=== PATIENT | female | born 1955 | race Caucasian/White ===

== ENCOUNTER → 2020-10-09 11:17 | Outpatient (CLI) | payer MEDICARE, OTHER, SELFPAY ==
--- NOTE | 2020-10-09 11:19 | DI.MG.S_ITS ---
BILATERAL DIGITAL SCREENING MAMMOGRAM 3D/2D WITH CAD: 10/09/2020 CLINICAL: Routine screening. Comparison is made to exams dated: 11/21/2016 mammogram, 08/02/2019 mammogram, and 11/10/2017 mammogram - outside location. The tissue of both breasts is predominantly fatty. Current study was also evaluated with a Computer Aided Detection (CAD) system. No significant masses, calcifications, or other findings are seen in either breast. There has been no significant interval change. IMPRESSION: NEGATIVE There is no mammographic evidence of malignancy. A 1 year screening mammogram is recommended. This exam was interpreted at Station ID: [id number]. NOTE: For mammograms, a report in lay terms will be sent to the patient. Approximately 15% of breast malignancies will not be visualized mammographically. In the management of a palpable breast mass, a negative mammogram must not discourage biopsy of a clinically suspicious lesion. Electronically Signed By: Enrique Robbins M.D., jr/jazmin:10/09/2020 12:20:20 letter sent: Normal Exam ACR BI-RADS Category 1: Negative [id number]
== END ==
PROVIDERS: PCP Registered Nurse Diabetes Educator; Referring Provider Registered Nurse Diabetes Educator; Visit Provider Registered Nurse Diabetes Educator
DX: Z12.31 Encounter for screening mammogram for malignant neoplasm of breast (principal); Z00.00 Encounter for general adult medical examination without abnormal findings; R73.01 Impaired fasting glucose; E78.5 Hyperlipidemia, unspecified
CPT/HCPCS: 77063; 77067

== ENCOUNTER → 2020-10-16 09:14 | Outpatient (CLI) | payer MEDICARE, OTHER, SELFPAY ==
[2020-10-16 09:45] LABS: Add Manual Diff / Slide Review NO; Basophils Absolute Auto 100 /uL (0-100); Basophils Percent Auto 1.9 % (0-2); Eosinophils Absolute Auto 300 /uL (0-450); Eosinophils Percent Auto 5.8 % (2-4); Hematocrit 40.9 % (36-46); Hemoglobin 13.9 g/dL (12.0-16.0); Lymphocytes Absolute Auto 1800 /uL (1100-4500); Lymphocytes Percent Auto 36.1 % (25-40); Mean Corpuscular HGB Conc 33.9 % (30-36); Mean Corpuscular Hemoglobin 30.7 PG (26-34); Mean Corpuscular Volume 90.5 fL (80-100); Monocytes Absolute Auto 400 /uL (0-900); Monocytes Percent Auto 7.6 % (3-14); Neutrophils Absolute Auto 2500 /uL (1500-7000); Neutrophils Percent Auto 48.6 % (50-75); Platelet Count 209 X10^3/uL (150-400); Red Blood Cell Count 4.52 X10^6/uL (4.0-5.2); Red Cell Distribution Width 12.9 % (11.6-14.8); White Blood Cell Count 5.1 X10^3/uL (4.5-11.0)
[2020-10-16 09:57] LABS: Hemoglobin A1C% w Est Avg Glu 5.5 % (4.0-6.0)
[2020-10-16 10:07] LABS: Alanine Aminotransferase 20 IU/L (<35); Albumin 4.1 g/dL (3.5-5.0); Albumin Globulin Ratio 1.2 (1.0-2.8); Alkaline Phosphatase 65 U/L (38-126); Aspartate Aminotransferase 28 IU/L (14-36); BUN Creatinine Ratio 27.4 (6-22); Bilirubin Total 0.8 mg/dL (0.2-1.3); Blood Urea Nitrogen 20 mg/dL (7-17); Calcium 9.5 mg/dL (8.4-10.2); Carbon Dioxide 33 mmol/L (22-32); Chloride 103 mmol/L (98-107); Cholesterol 245 mg/dL (140-199); Estimated Glomerular Filt Rate > 60.0 mL/min (>60); Globulin 3.3 g/dL (1.7-4.1); Glucose 111 mg/dL (80-110); HDL Cholesterol 71 mg/dL (40-60); HEMOLYSIS < 15 (0-50); LDL Cholesterol Calculated 152 mg/dL (<100); Potassium 4.3 mmol/L (3.4-5.1); Sodium 137 mmol/L (137-145); Total Protein 7.4 g/dL (6.3-8.2); Triglycerides 109 mg/dL (35-150)
[2020-10-16 10:40] LABS: TSH w/ Reflex to FT4 2.41 uIU/mL (0.47-4.68)
== END ==
PROVIDERS: PCP Registered Nurse Diabetes Educator; Referring Provider Registered Nurse Diabetes Educator; Visit Provider Registered Nurse Diabetes Educator
DX: Z00.00 Encounter for general adult medical examination without abnormal findings (principal); E78.5 Hyperlipidemia, unspecified; R73.01 Impaired fasting glucose
CPT/HCPCS: 36415; 80053; 80061; 83036; 84443; 85025

== ENCOUNTER → 2020-12-04 14:01 | Outpatient (CLI) | payer MEDICARE, OTHER, SELFPAY ==
[2020-12-04 15:04] LABS: COVID19 -Nasal RAPID Negative (Negative)
== END ==
PROVIDERS: PCP Registered Nurse Diabetes Educator; Visit Provider Physician Assistant
DX: Z20.822 Contact with and (suspected) exposure to COVID-19 (principal)
CPT/HCPCS: 87635

== ENCOUNTER → 2021-05-12 08:15 | Outpatient (CLI) | payer MEDICARE, OTHER, SELFPAY ==
[2021-05-12 09:34] LABS: Add Manual Diff / Slide Review NO; Basophils Absolute Auto 100 /uL (0-100); Basophils Percent Auto 0.9 % (0-2); Eosinophils Absolute Auto 200 /uL (0-450); Eosinophils Percent Auto 3.7 % (2-4); Hematocrit 41.2 % (36-46); Hemoglobin 13.8 g/dL (12.0-16.0); Lymphocytes Absolute Auto 2600 /uL (1100-4500); Lymphocytes Percent Auto 41.7 % (25-40); Mean Corpuscular HGB Conc 33.5 % (30-36); Mean Corpuscular Hemoglobin 30.6 PG (26-34); Mean Corpuscular Volume 91.4 fL (80-100); Monocytes Absolute Auto 300 /uL (0-900); Monocytes Percent Auto 5.6 % (3-14); Neutrophils Absolute Auto 2900 /uL (1500-7000); Neutrophils Percent Auto 48.1 % (50-75); Platelet Count 242 X10^3/uL (150-400); Red Blood Cell Count 4.51 X10^6/uL (4.0-5.2); Red Cell Distribution Width 13.4 % (11.6-14.8); White Blood Cell Count 6.1 X10^3/uL (4.5-11.0)
[2021-05-12 10:24] LABS: Alanine Aminotransferase 20 IU/L (<35); Albumin 4.1 g/dL (3.5-5.0); Albumin Globulin Ratio 1.6 (1.0-2.8); Alkaline Phosphatase 61 U/L (38-126); Aspartate Aminotransferase 31 IU/L (14-36); BUN Creatinine Ratio 18.6 (6-22); Bilirubin Total 0.8 mg/dL (0.2-1.3); Blood Urea Nitrogen 11 mg/dL (7-17); Calcium 9.9 mg/dL (8.4-10.2); Carbon Dioxide 28 mmol/L (22-32); Chloride 104 mmol/L (98-107); Cholesterol 216 mg/dL (140-199); Estimated Glomerular Filt Rate > 60.0 mL/min (>60); Globulin 2.6 g/dL (1.7-4.1); Glucose 99 mg/dL (80-110); HDL Cholesterol 88 mg/dL (40-60); HEMOLYSIS < 15 (0-50); LDL Cholesterol Calculated 112 mg/dL (<100); Potassium 4.5 mmol/L (3.4-5.1); Sodium 138 mmol/L (137-145); Total Protein 6.7 g/dL (6.3-8.2); Triglycerides 81 mg/dL (35-150)
[2021-05-12 10:48] LABS: Thyroid Stimulating Hormone 3.09 uIU/mL (0.47-4.68)
== END ==
PROVIDERS: PCP Registered Nurse Diabetes Educator; Referring Provider Registered Nurse; Visit Provider Registered Nurse
DX: E03.9 Hypothyroidism, unspecified (principal); R53.83 Other fatigue; E78.5 Hyperlipidemia, unspecified
CPT/HCPCS: 36415; 80053; 80061; 84443; 85025

== ENCOUNTER 2021-05-12 14:55 | Inpatient (IN) | payer MEDICARE, OTHER, SELFPAY ==
[2021-05-12] VITALS (34 sets, daily range): BP systolic 83–154; BP diastolic 50–81; PULSE 41–82; RESP 11–37; TEMP 36.7–37.3; O2SAT 92–99; BMI 31.3; BMI 31.0
--- NOTE | 2021-05-12 14:57 | DI.RAD.S_ITS ---
PROCEDURE: XR CHEST 1V INDICATIONS: chest pain TECHNIQUE: One view of the chest was acquired. COMPARISON: None. FINDINGS: Surgical changes and devices: None. Lungs and pleura: Lungs are clear. No pleural effusions or pneumothorax. Mediastinum: Mediastinal contours appear normal. Heart size is normal. Bones and chest wall: No suspicious bony lesions. Overlying soft tissues appear unremarkable. IMPRESSION: No evidence acute pulmonary process. Dictated by: Donte Schmid M.D. on 05/12/2021 at 14:48 Approved by: Donte Schmid M.D. on 05/12/2021 at 14:48
[2021-05-12 15:07] LABS: Add Manual Diff / Slide Review NO; Basophils Absolute Auto 100 /uL (0-100); Basophils Percent Auto 1.2 % (0-2); Eosinophils Absolute Auto 200 /uL (0-450); Eosinophils Percent Auto 2.7 % (2-4); Hematocrit 44.9 % (36-46); Lymphocytes Absolute Auto 2800 /uL (1100-4500); Lymphocytes Percent Auto 37.7 % (25-40); Mean Corpuscular HGB Conc 33.4 % (30-36); Mean Corpuscular Hemoglobin 30.8 PG (26-34); Mean Corpuscular Volume 92.1 fL (80-100); Monocytes Absolute Auto 400 /uL (0-900); Monocytes Percent Auto 5.2 % (3-14); Neutrophils Absolute Auto 4000 /uL (1500-7000); Neutrophils Percent Auto 53.2 % (50-75); Platelet Count 272 X10^3/uL (150-400); Red Blood Cell Count 4.88 X10^6/uL (4.0-5.2); Red Cell Distribution Width 13.5 % (11.6-14.8); White Blood Cell Count 7.5 X10^3/uL (4.5-11.0)
[2021-05-12 15:16] LABS: Alanine Aminotransferase 25 IU/L (<35); Albumin Globulin Ratio 1.4 (1.0-2.8); Alkaline Phosphatase 76 U/L (38-126); Aspartate Aminotransferase 38 IU/L (14-36); BUN Creatinine Ratio 18.3 (6-22); Bilirubin Total 0.7 mg/dL (0.2-1.3); Blood Urea Nitrogen 13 mg/dL (7-17); Calcium 10.3 mg/dL (8.4-10.2); Carbon Dioxide 28 mmol/L (22-32); Chloride 101 mmol/L (98-107); Creatine Kinase 83 U/L (30-135); Estimated Glomerular Filt Rate > 60.0 mL/min (>60); Globulin 3.7 g/dL (1.7-4.1); Glucose 120 mg/dL (80-110); HEMOLYSIS < 15 (0-50); Lipase 153 U/L (23-300); Sodium 138 mmol/L (137-145); Total Protein 8.7 g/dL (6.3-8.2)
[2021-05-12] MEDS: NITROGLYCERIN OINT 1 INCH/GM OINT...G. TOP (15:22)
[2021-05-12] MEDS: HEPARIN 5,000 UNIT/ML VIAL 5000 UNIT IV (15:23)
[2021-05-12] MEDS: HEPARIN DRIP 25,000 UNIT/500 ML IV.SOLN 20 UNIT IV (15:23)
[2021-05-12 15:27] LABS: Troponin I < 0.012 ng/mL (0.01-0.034)
--- NOTE | 2021-05-12 15:44 | PC.NURSE ---
second IV placed due to heparin infusion.
--- NOTE | 2021-05-12 15:58 | ED_ITS ---
HPI - Chest Pain General Chief Complaint: Chest Pain Stated Complaint: Chest pain Time Seen by Provider: 05/12/21 15:07 Source: patient and EMS Mode of arrival: Family Vehicle Limitations: no limitations History of Present Illness HPI narrative: 65-year-old woman with intermittent episodes of chest pain shortness of breath nausea the chest pain she describes as a weight over her chest more on the left side and under her left shoulder brain this been increasing in intensity and frequency over the last number of months. Yesterday she was seen by her primary care physician and workup was initiated however today she noted that she had significant symptoms after simply walking her dog in her yd which is dramatically unusual for her. Her symptoms today consisted of a sense of being ?off? decreased dexterity feeling off balance mild bradycardia at a rate of 47 along with the weighted feeling over her chest ra diating up under the left shoulder blade. She notes that she does occasionally have stomach pain it has been worse over the last number of days with increasing bloating. She does have a history of a nxiety but has not felt particularly anxious when she has these episodes. She notes that she also has chronic neck pain after for cervical spine surgeries and had assumed that some of the chest pressure was related to that as well. She denies vomiting, abdominal pain, constipation, fevers, cough, chills. Related Data Home Medications Medication Instructions Recorded Confirmed cbd thc tincture PO 09/18/20 05/11/21 coQ10 (ubiquinol) 100 mg capsule 100 mg PO BID 05/11/21 05/11/21 Previous Rx's Medication Instructions Recorded celecoxib 100 mg capsule 100 mg PO BID #180 cap 10/25/20 escitalopram oxalate 10 mg tablet 10 mg PO DAILY #90 tab 10/25/20 levothyroxine 50 mcg capsule 50 mcg PO DAILY #90 cap 10/25/20 trazodone 50 mg tablet 50 mg PO BEDTIME PRN #90 tab 10/25/20 Allergies Allergy/AdvReac Type Severity Reaction Status Date / Time Penicillins AdvReac Intermediate vomiting Verified 04/26/21 16:42 Sulfa (Sulfonamide AdvReac Intermediate vomiting Verified 04/26/21 16:42 Antibiotics) Review of Systems Review of Systems Narrative: Remainder of complete review of systems is otherwise unremarkable except for that included in the HPI. Patient History Medical History Cataracts, bilateral (~2018) Cervical spine disease (~2006) Chest pain Chicken pox (~1959) Chronic back pain (~2006) Colon polyps (~2000) Diverticular disease (~1999) Dyslipidemia Fatigue Fibroids Fibromyalgia Hypothyroidism (~2014) Impaired fasting blood sugar Measles Migraines Mumps Peripheral neuropathy Pituitary adenoma (~2001) Psoriasis Rosacea Scoliosis Shoulder pain (~2008) Skin cancer (~1991) Viral syndrome Surgical History Anesthesia History of section History of hysterectomy (~1999) History of lumbar surgery (~2017) History of shoulder surgery (~2009) History of tonsillectomy Status post arthroscopic surgery of right knee Status post cervical spinal fusion Family History Father Cancer History of heart disease Mother COPD (chronic obstructive pulmonary disease) Brother Skin problem Grandfather History of heart disease Grandmother History of heart disease Social History Smoking Status: Never smoker Smoking Status: Never smoker alcohol intake frequency: 0-2 drinks per day Alcohol type: wine Substance Use Type: does not use Exam Narrative Exam Narrative: General: Healthy appearing, in no acute distress. Able to give a complete and coherent history. Well-nourished well-developed HEENT: Moist mucous membranes, normal sclera with reactive pupils, Neck: No JVD, supple Respiratory: Lungs are clear to auscultation, no wheezing no rales no rhonchi. Full and symmetrical air movement Cardiac: Regular rate and rhythm no murmurs no bruits Abdomen: Soft, nontender, good bowel tones, no flank pain Skin: Warm and dry, no rashes Neurologic: Grossly neurologically intact with no obvious asymmetries or abnormalities Extremities: No trauma, well perfused Psych: Cooperative, appropriate insight and affect Initial Vital Signs Initial Vital Signs: Vital Signs Temperature 99.1 F 05/12/21 15:03 Pulse Rate 82 05/12/21 15:03 Respiratory Rate 18 05/12/21 15:03 Blood Pressure 149/81 H 05/12/21 15:03 Pulse Oximetry 99 05/12/21 15:03 Course Orders Ordered: ED Orders 05/12/21 14:45 Complete Blood Count AUTO DIFF Stat Comprehensive Metabolic Panel Stat Lipase Stat Troponin & CK Cardiac Panel Stat 05/12/21 14:57 XR chest 1V Stat EKG-12 Lead Stat 05/12/21 16:25 COVID19 - ADMIT (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 MANAGER swab/PCR) Stat 05/12/21 16:50 Troponin I Stat Acetaminophen (Acetaminophen 325 Mg Tablet) 650 mg PO Q6HR PRN PRN Reason: Fever/Mild Pain (1-3) Al Hydrox/Mg Hydrox/Simethicone (Mag Hydrox/Alum/Simeth 30 Ml Udc) 30 ml PO Q6HR PRN PRN Reason: Dyspepsia Aspirin (Aspirin Ec 325 Mg Tablet) 325 mg PO DAILY SHAUN Heparin Sodium/Dextrose (Heparin Drip) 25,000 unit in 500 mls @ 20 mls/hr IV CONT SHAUN; Protocol Last Admin: 05/12/21 15:23 Dose: 1,000 units/hr, 20 mls/hr Documented by: EDWARD Sodium Chloride (Normal Saline 0.9%) 500 mls @ 1,000 mls/hr IV BOLUS ONE Stop: 05/12/21 20:20 Last Admin: 05/12/21 20:01 Dose: 1,000 mls/hr Documented by: Morphine Sulfate (Morphine 2 Mg/Ml Inj) 2 mg IV Q5MIN PRN PRN Reason: Chest Pain Naloxone HCl (Naloxone 0.4 Mg/Ml Vial) 0.2 mg IV Q2MIN PRN PRN Reason: Opiate Reversal Nitroglycerin (Nitroglycerin 0.4 Mg Sl Tab) 0.4 mg SL [id number] PRN PRN Reason: Chest Pain Discontinued Medications Acetaminophen (Acetaminophen 325 Mg Tablet) 975 mg PO NOW ONE Stop: 05/12/21 19:05 Last Admin: 05/12/21 19:44 Dose: 975 mg Documented by: Heparin Sodium (Porcine) (Heparin 5,000 Unit/Ml Vial) 5,000 unit IV NOW ONE Stop: 05/12/21 15:16 Last Admin: 05/12/21 15:23 Dose: 5,000 unit Documented by: EDWARD Nitroglycerin (Nitroglycerin Oint 1 Inch/Gm Oint...G.) 1 inch TOP NOW ONE Stop: 05/12/21 15:16 Last Admin: 05/12/21 15:22 Dose: 1 inch Documented by: EDWARD Nitroglycerin (Nitroglycerin Oint 1 Inch/Gm Oint...G.) 0.5 inch TOP NOW ONE Stop: 05/12/21 19:52 Last Admin: 05/12/21 20:02 Dose: 0.5 inch Documented by: Vital Signs Vital signs: Vital Signs - 8 hr 05/12/21 15:03 05/12/21 15:22 05/12/21 15:47 Temperature 99.1 F Pulse Rate 82 58 L 57 L Respiratory Rate 18 21 Blood Pressure 149/81 H 154/72 H Pulse Oximetry 99 97 05/12/21 15:50 05/12/21 16:00 05/12/21 16:10 Temperature Pulse Rate 59 L 60 56 L Respiratory Rate 23 31 H 20 Blood Pressure 108/60 120/66 102/55 L Pulse Oximetry 94 98 95 05/12/21 16:20 05/12/21 16:30 05/12/21 16:40 Temperature Pulse Rate 60 60 56 L Respiratory Rate 37 H Blood Pressure 102/58 L 105/60 100/61 Pulse Oximetry 96 97 95 05/12/21 16:50 05/12/21 17:00 05/12/21 17:10 Temperature Pulse Rate 56 L 56 L 52 L Respiratory Rate Blood Pressure 108/60 122/66 105/64 Pulse Oximetry 95 96 96 05/12/21 17:30 05/12/21 17:41 05/12/21 17:50 Temperature Pulse Rate 54 L 54 L 51 L Respiratory Rate 11 L 18 12 Blood Pressure 138/71 111/67 108/65 Pulse Oximetry 98 97 96 05/12/21 18:00 05/12/21 18:10 05/12/21 18:20 Temperature Pulse Rate 54 L 52 L 52 L Respiratory Rate 23 Blood Pressure 106/59 L 111/68 119/64 Pulse Oximetry 98 96 97 05/12/21 18:30 05/12/21 18:40 05/12/21 18:43 Temperature Pulse Rate 52 L 48 L 50 L Respiratory Rate Blood Pressure 100/51 L 96/62 Pulse Oximetry 96 95 97 05/12/21 18:50 05/12/21 19:00 Temperature Pulse Rate 47 L 46 L Respiratory Rate Blood Pressure 86/52 L 106/61 Pulse Oximetry 96 98 MDM - Chest Pain Medical Records Data Attestation: I reviewed the patient's medical records. Lab Data Attestation: I reviewed the patient's lab results. Result diagrams: 05/12/21 14:45 05/12/21 14:45 Labs: Lab Results 05/12/21 05/12/21 05/12/21 Range/Units 14:45 14:45 16:25 WBC 7.5 (4.5-11.0) X10^3/uL RBC 4.88 (4.0-5.2) X10^6/uL Hgb 15.0 (12.0-16.0) g/dL Hct 44.9 (36-46) % MCV 92.1 (80-100) fL MCH 30.8 (26-34) PG MCHC 33.4 (30-36) % RDW 13.5 (11.6-14.8) % Plt Count 272 (150-400) X10^3/uL Neut % (Auto) 53.2 (50-75) % Lymph % (Auto) 37.7 (25-40) % [place] % (Auto) 5.2 (3-14) % Eos % (Auto) 2.7 (2-4) % Baso % (Auto) 1.2 (0-2) % Neut # (Auto) 4000 (7886-3041) /uL Lymph # (Auto) 2800 (9478-8740) /uL [place] # (Auto) 400 (0-900) /uL Eos # (Auto) 200 (0-450) /uL Baso # (Auto) 100 (0-100) /uL Sodium 138 (137-145) mmol/L Potassium 4.0 (3.4-5.1) mmol/L Chloride 101 (98-107) mmol/L Carbon Dioxide 28 (22-32) mmol/L BUN 13 (7-17) mg/dL Creatinine 0.71 (0.52-1.04) mg/dL Estimated GFR > 60.0 (>60) mL/min BUN/Creatinine Ratio 18.3 (6-22) Glucose 120 H (80-110) mg/dL Calcium 10.3 H (8.4-10.2) mg/dL Total Bilirubin 0.7 (0.2-1.3) mg/dL AST 38 H (14-36) IU/L ALT 25 (<35) IU/L Alkaline Phosphatase 76 (38-126) U/L Total Creatine Kinase 83 (30-135) U/L CK-MB (CK-2) TNP CK-MB (CK-2) Rel Index TNP Troponin I < 0.012 (0.01-0.034) ng/mL Total Protein 8.7 H (6.3-8.2) g/dL Albumin 5.0 (3.5-5.0) g/dL Globulin 3.7 (1.7-4.1) g/dL Albumin/Globulin Ratio 1.4 (1.0-2.8) Lipase 153 (23-300) U/L SARS-CoV-2 (PCR) Negative (Negative) 05/12/21 Range/Units 16:50 WBC (4.5-11.0) X10^3/uL RBC (4.0-5.2) X10^6/uL Hgb (12.0-16.0) g/dL Hct (36-46) % MCV (80-100) fL MCH (26-34) PG MCHC (30-36) % RDW (11.6-14.8) % Plt Count (150-400) X10^3/uL Neut % (Auto) (50-75) % Lymph % (Auto) (25-40) % [place] % (Auto) (3-14) % Eos % (Auto) (2-4) % Baso % (Auto) (0-2) % Neut # (Auto) (3191-0551) /uL Lymph # (Auto) (8909-7504) /uL [place] # (Auto) (0-900) /uL Eos # (Auto) (0-450) /uL Baso # (Auto) (0-100) /uL Sodium (137-145) mmol/L Potassium (3.4-5.1) mmol/L Chloride (98-107) mmol/L Carbon Dioxide (22-32) mmol/L BUN (7-17) mg/dL Creatinine (0.52-1.04) mg/dL Estimated GFR (>60) mL/min BUN/Creatinine Ratio (6-22) Glucose (80-110) mg/dL Calcium (8.4-10.2) mg/dL Total Bilirubin (0.2-1.3) mg/dL AST (14-36) IU/L ALT (<35) IU/L Alkaline Phosphatase (38-126) U/L Total Creatine Kinase (30-135) U/L CK-MB (CK-2) CK-MB (CK-2) Rel Index Troponin I < 0.012 (0.01-0.034) ng/mL Total Protein (6.3-8.2) g/dL Albumin (3.5-5.0) g/dL Globulin (1.7-4.1) g/dL Albumin/Globulin Ratio (1.0-2.8) Lipase (23-300) U/L SARS-CoV-2 (PCR) (Negative) Imaging Data Chest x-ray: Radiologist's Impression: FINDINGS: Surgical changes and devices: None. Lungs and pleura: Lungs are clear. No pleural effusions or pneumothorax. Mediastinum: Mediastinal contours appear normal. Heart size is normal. Bones and chest wall: No suspicious bony lesions. Overlying soft tissues appear unremarkable. IMPRESSION: No evidence acute pulmonary process. Dictated by: Donte Schmid M.D. on 05/12/2021 at 14:48 ECG Data Interpretation: Sinus Alex at a rate of 54 Otherwise normal intervals and axis No acute ischemic changes MDM Narrative Medical decision making narrative: 65-year-old woman with a strong history for progressive angina manifested as exertional dyspnea and pain radiating to the left scapula. Dyspnea completely resolved with nitroglycerin. She has a mild nitroglycerin headache. Initial EKG and 1st and 2nd troponin are unremarkable. Based on her history alone she was started on heparin drip and nitro paste was placed. She has not had additional dyspnea or nausea. At this point she is safe for [facility] for cardiac rule out and further cardiac evaluation. Findings are reviewed with patient she is amenable to hospital admission. Patient is reviewed with the hospitalist service and she will be admitted observation status. At this point she is safe for transfer to the floor Discharge Plan Departure Patient Disposition: Admitted as Observation Clinical Impression: Exertional dyspnea Admit Date/Time: 05/12/21 19:06 Admit Provider: Montserrat Braxton
[2021-05-12 17:20] LABS: COVID19 - ADMIT (NP swab/PCR) Negative (Negative)
[2021-05-12 17:32] LABS: Troponin I < 0.012 ng/mL (0.01-0.034)
[2021-05-12] MEDS: ACETAMINOPHEN 325 MG TABLET 975 MG PO (19:44)
--- NOTE | 2021-05-12 19:52 | PC.NURSE ---
Pt noted with HR 45 and BP 80s/40's. Pt reports dizziness with movement and HOOPER /. Pt medicated with tylenol per order, BP improved to 106/59. Dr Tan notified, orders received for NS 500ml bolus, and remove 1 nitropaste and replace with 0.5 nitropaste.
[2021-05-12] MEDS: SODIUM CHLORIDE 0.9% 500 ML 1000 ML IV (20:01)
[2021-05-12] MEDS: NITROGLYCERIN OINT 1 INCH/GM OINT...G. 0.5 INCH TOP (20:02)
--- NOTE | 2021-05-12 20:03 | DI.ECHO.S_ITS ---
[facility]---------+ [facility] +---------+ : : [address] : : : : [id number] : : : : Phone: [phone] Echocardiogram Report + + :Name: PATRICIA MOODY Study Date: 05/13/2021 Height: 63 in : :[facility] ReadingLocation: Weight: 176 lb : : Gender: Female BSA: 1.8 m2 : :: 1955 Age: 65 yrs BP: 108/63 mmHg: :Reason For Study: CHEST PAIN : :Ordering Physician: LANIE, : :TOLU Performed By: Lisa Singh : :Referring: TOLU DELA CRUZ : + + Interpretation Summary 1) Normal left ventricular size, thickness, wall motion, and systolic function (EF 60-65%). 2) Normal right ventricular size and function. 3) There is moderate mitral regurgitation. 4) There is mild to moderate tricuspid regurgitation. 5) The right ventricular systolic pressure is estimated to be at least 31 mmHg based on an estimated right atrial pressure of 8 mm Hg. 6) No prior Echo available for comparison. Procedure: A two-dimensional transthoracic echocardiogram with color flow and Doppler was performed. The study quality was technically adequate. There is no prior echocardiogram noted for this patient. The patient was in sinus bradycardia with heart rates between 45-55 bpm during the exam. Left Ventricle: The left ventricle is normal in size and wall thickness. The ejection fraction is estimated to be 60-65%. Left ventricular systolic function appears normal without focal wall motion abnormalities. Right Ventricle: The right ventricle is normal in size and function. Atria: The left atrial size is normal. Right atrial size is normal. There is no Doppler evidence for an interatrial shunt. Mitral Valve: The mitral valve leaflets appear borderline thickened, but open well. There is no evidence of mitral valve prolapse. There is moderate mitral regurgitation. Aortic Valve: The aortic valve is trileaflet. The aortic valve opens well. There is no aortic valve stenosis. No aortic regurgitation is present. Tricuspid Valve: The tricuspid valve is normal in structure and function. The right ventricular systolic pressure is estimated to be at least 31 mmHg based on an estimated right atrial pressure of 8 mm Hg. There is mild to moderate tricuspid regurgitation. Pulmonic Valve: The pulmonic valve leaflets are thin and pliable; valve motion is normal. There is no pulmonic valvular regurgitation. Great Vessels: The aortic root is normal size. The dimensions of the ascending aorta are normal. The IVC is dilated (diameter is greater than 2.1 cm) yet it collapses greater than 50% with a sniff. This suggests a right atrial pressure of 8 mm Hg. Pericardium/ Pleura There is no pericardial effusion. There is no pleural effusion. MMode/2D Measurements & Calculations LVIDd: 4.6 cm LVOT diam: 2.0 cm LVIDs: 2.9 cm Ao root diam: 3.2 cm FS: 36.1 % asc Aorta Diam: 2.9 cm EPSS: 0.75 cm Ao Arch Diam (Prox Trans): 2.6 cm IVSd: 0.69 cm LVPWd: 0.87 cm LV parker. diameter/BSA (cm/m^2): 2.5 LV sys. diameter/BSA (cm/m^2): 1.6 LA A2 area: 17.0 cm2 RA long axis: 4.6 cm LA A4 area: 14.4 cm2 RA area: 15.7 cm2 LA length (vol): 4.2 cm RA vol: 45.7 ml LA vol: 49.3 ml RA : 25.0 ml/m2 LA vol index: 26.9 ml/m2 IVC diam: 2.2 cm RVD1 (basal): 3.8 cm TAPSE: 2.8 cm Doppler Measurements & Calculations Ao V2 max: 113.9 cm/sec LVOT Max Valeriy: 101.9 cm/sec Ao V2 mean: 79.0 cm/sec LV V1 max P.2 mmHg Ao max P.2 mmHg LV V1 VTI: 23.7 cm Ao mean P.8 mmHg BROOK(I,D): 2.8 cm2 Ao V2 VTI: 27.7 cm BROOK(V,D): 2.9 cm2 sev ratio: 0.86 BROOK indexed to BSA (cm^2/m^2): 1.5 MV E max valeriy: 87.5 cm/sec TR max valeriy: 240.6 cm/sec MV A max valeriy: 49.0 cm/sec TR max P.1 mmHg MV E/A: 1.8 PA V2 max: 74.2 cm/sec Med Peak E' Valeriy: 9.7 cm/sec PA V2 mean: 50.5 cm/sec E/E' med: 9.0 PA mean P.2 mmHg Lat Peak E' Valeriy: 9.7 cm/sec PA pr(Accel): 24.2 mmHg E/E' lat: 9.0 E/e' average: 9.0 MV dec time: 0.27 sec MR ERO: 0.19 cm2 MR PISA: 2.7 cm2 SV(LVOT): 76.2 ml MR flow rate: 99.1 cm3/sec MR PISA radius: 0.65 cm Reading Physician:01:22 PM
--- NOTE | 2021-05-12 20:31 | P.HP_ITS ---
History of Present Illness History of Present Illness Date Patient Seen: 05/12/21 Time Patient Seen: 20:00 Chief complaint: Chest pain Narrative: HPI narrative: 65-year-old woman with intermittent episodes of chest pain, shortness of breath, with diaphoresis, changes in vision, and nausea. The patient reports chest pain described as a weight over her mid upper chest area that radiates down into the left side and under her left shoulder blade, this been increasing in intensity and frequency over the last number of months, seems to be elicited with movement. She has felt a fluttering of her heart, and has experienced numbness and tingling to her fingers and toes during these episodes of chest pain. Yesterday she was seen by her primary care physician and workup was initiated however today she noted that she had significant symptoms after simply walking her dog today, which were dramatically worse for her. Her symptoms once in the ED were sense of being ?off? ,decreased dexterity, feeling off balance mild bradycardia at a rate of 47 along with CP the weighted feeling over her chest radiating down & to her left and then up under the left shoulder blade. Her symptoms were relieved nitro paste. Upon admit to the floor the patient reports 1 small episode of chest pressure again lasting only seconds, but had resolved by the time I had arrived to the bedside. She notes that she does occasionally have stomach pain it has been worse over the last number of days with increasing bloating and abdominal pain postprandially, a weight loss of 30 lb over the past year, patient drinks approximately 4-5, 16 oz glasses of water a day and has increased thirst, urinary frequency and urgency without dysuria. She eats a balanced diet, exercises regularly. Patient follows both [facility] and has a primary care Deny Villasenor. Patient has a history of chronic low back pain, chronic neck pain, fibromyalgia (hyper-sensitive nervous system), diverticular disease, migraines, history of pituitary adenoma, hypothyroidism, migraines and has had cervical fusion from C1-T3. 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 Patient denies any anxiety or depression with these episodes. She denies vomiting, abdominal pain, constipation, fevers, cough, chills. Patient's initial exam in ED was fairly unremarkable. Patient did have a mild temperature at 99.1?. 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 Patient had a mildly elevated glucose at 120., troponin and lipase were within normal limits. Chest x-ray was without any evidence of acute pulmonary process, EKG sinus delmar, rate of [address] or T-wave changes. Patient is resting in bed at this time completely asymptomatic and in no distress. Patient admitted for chest pain suspect possible ACS. Patient History Medical History Cataracts, bilateral (~2018) Cervical spine disease (~2006) Chest pain Chicken pox (~1959) Chronic back pain (~2006) Colon polyps (~2000) Diverticular disease (~1999) Dyslipidemia Fatigue Fibroids Fibromyalgia Hypothyroidism (~2014) Impaired fasting blood sugar Measles Migraines Mumps Peripheral neuropathy Pituitary adenoma (~2001) Psoriasis Rosacea Scoliosis Shoulder pain (~2008) Skin cancer (~1991) Viral syndrome Surgical History Anesthesia History of section History of hysterectomy (~1999) History of lumbar surgery (~2017) History of shoulder surgery (~2009) History of tonsillectomy Status post arthroscopic surgery of right knee Status post cervical spinal fusion Family & Social History Family History Father Cancer History of heart disease Mother COPD (chronic obstructive pulmonary disease) Brother Skin problem Grandfather History of heart disease Grandmother History of heart disease Safety & Behavioral: Feels Safe in Current Yes. 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 Environment Been Physically Hurt or No Threatened By a Person Tobacco & Substance use: Smoking Status Never smoker alcohol intake frequency 0-2 drinks per day Substance Use Type does not use Meds Home Medications and Allergies Home Medications Medication Instructions Recorded Confirmed Type cbd thc tincture PO 09/18/20 05/11/21 History celecoxib 100 mg capsule 100 mg PO BID #180 cap 10/25/20 05/11/21 Rx escitalopram oxalate 10 mg tablet 10 mg PO DAILY #90 tab 10/25/20 05/11/21 Rx levothyroxine 50 mcg capsule 50 mcg PO DAILY #90 cap 10/25/20 05/11/21 Rx trazodone 50 mg tablet 50 mg PO BEDTIME PRN #90 tab 10/25/20 05/11/21 Rx coQ10 (ubiquinol) 100 mg capsule 100 mg PO BID 05/11/21 05/11/21 History Allergies Allergy/AdvReac Type Severity Reaction Status Date / Time Penicillins AdvReac Intermediate vomiting Verified 04/26/21 16:42 Sulfa (Sulfonamide AdvReac Intermediate vomiting Verified 04/26/21 16:42 Antibiotics) Review of Systems Review of Systems ROS: Yes All systems reviewed with the patient and are negative except as otherwise documented Constitutional Constitutional: Reports fatigue, Reports headache(s) and Reports weight loss Eyes Eyes: Reports blurry vision and Reports change in vision ENT Ears, Nose, Mouth, and Throat: Yes dizziness, Yes headache(s) and Yes neck pain (Chronic) Cardiovascular Cardiovascular: Reports chest pain, Reports chest pain with activity, Reports pedal edema, Reports lightheadedness, Reports palpitations (She has felt fibrillation), Reports dyspnea on exertion and Reports slow heart rate Comments: swelling of her hands bilaterally Respiratory Respiratory: Reports dyspnea on exertion Gastrointestinal Gastrointestinal: Reports tenesmus and Reports nausea Genitourinary Genitourinary: Reports urinary urgency Musculoskeletal Musculoskeletal: Reports neck pain (Chronic) Neurologic Neurologic: Reports dizziness and Reports headache(s) Endocrine Endocrine: Reports cold intolerance, Reports fatigue, Reports polydipsia and Reports palpitations (She has felt fibrillation) Exam Vital Signs (past 8 hours): - 05/12/21 15:03 05/12/21 15:22 05/12/21 15:47 Temperature 99.1 F Pulse Rate 82 58 L 57 L Respiratory Rate 18 21 Blood Pressure 149/81 H 154/72 H Pulse Oximetry 99 97 05/12/21 15:50 05/12/21 16:00 05/12/21 16:10 Temperature Pulse Rate 59 L 60 56 L Respiratory Rate 23 31 H 20 Blood Pressure 108/60 120/66 102/55 L Pulse Oximetry 94 98 95 05/12/21 16:20 05/12/21 16:30 05/12/21 16:40 Temperature Pulse Rate 60 60 56 L Respiratory Rate 37 H Blood Pressure 102/58 L 105/60 100/61 Pulse Oximetry 96 97 95 05/12/21 16:50 05/12/21 17:00 05/12/21 17:10 Temperature Pulse Rate 56 L 56 L 52 L Respiratory Rate Blood Pressure 108/60 122/66 105/64 Pulse Oximetry 95 96 96 05/12/21 17:30 05/12/21 17:41 05/12/21 17:50 Temperature Pulse Rate 54 L 54 L 51 L Respiratory Rate 11 L 18 12 Blood Pressure 138/71 111/67 108/65 Pulse Oximetry 98 97 96 05/12/21 18:00 05/12/21 18:10 05/12/21 18:20 Temperature Pulse Rate 54 L 52 L 52 L Respiratory Rate 23 Blood Pressure 106/59 L 111/68 119/64 Pulse Oximetry 98 96 97 05/12/21 18:30 05/12/21 18:40 05/12/21 18:43 Temperature Pulse Rate 52 L 48 L 50 L Respiratory Rate Blood Pressure 100/51 L 96/62 Pulse Oximetry 96 95 97 05/12/21 18:50 05/12/21 19:00 05/12/21 19:10 Temperature Pulse Rate 47 L 46 L 48 L Respiratory Rate Blood Pressure 86/52 L 106/61 98/54 L Pulse Oximetry 96 98 92 05/12/21 19:20 05/12/21 19:30 05/12/21 19:37 Temperature Pulse Rate 48 L 47 L 47 L Respiratory Rate Blood Pressure 100/56 L 88/50 L 83/50 L Pulse Oximetry 95 95 98 05/12/21 19:41 05/12/21 19:50 Temperature Pulse Rate 48 L 47 L Respiratory Rate Blood Pressure 104/53 L 106/59 L Pulse Oximetry 97 95 Oxygen Delivery Method Room Air Narrative Exam Narrative: General: Patient is a delightful well-developed, well- nourished female in no distress at this time. HEENT: Normocephalic, atraumatic, extraocular muscles intact, oral pharynx is clear and mucous membranes are moist. Neck is supple and symmetric, trachea is midline, no adenopathy, no thyroid enlargement, nontender, no masses palpated. Negative for JVD Chest: Normal AP diameter and contour without kyphoscoliosis, no nasal flaring, retractions, or tachypneic labored Lungs: Auscultation of all lung alexander are clear without adventitious sounds, wheezes, rhonchi, or rales. Cardio: S1 & S2 with regular rate and rhythm without murmur, rubs, or gallops, no carotid bruit, no cardiac pulsations present. Abdomen: Soft nontender, negative for organomegaly, or masses. Bowel sounds are present in all 4 quadrants without guarding or rebound, no CVA tenderness. Musculoskeletal: Muscle strength and tone are equal within normal limits, no deformity, crepitus, effusions, cyanosis, clubbing or edema present. Full range of motion intact radial and pedal pulses are normal. Skin: Warm dry and intact without rashes, ulcerations or petechiae. Neuro: Alert and orientated x3, strength is +5/5 in all extremities, sensation to touch intact, no gross deficits noted of cranial nerves. Psych: Patient has a well-kept appearance, appropriate affect, mental status attitude thought context and judgment are appropriate for age. Objective Labs Result Diagrams: 05/12/21 14:45 05/12/21 14:45 Labs: Laboratory Results - last 24 hr 05/12/21 05/12/21 05/12/21 14:45 14:45 16:25 WBC 7.5 RBC 4.88 Hgb 15.0 Hct 44.9 MCV 92.1 MCH 30.8 MCHC 33.4 RDW 13.5 Plt Count 272 Neut % (Auto) 53.2 Lymph % (Auto) 37.7 [place] % (Auto) 5.2 Eos % (Auto) 2.7 Baso % (Auto) 1.2 Neut # (Auto) 4000 Lymph # (Auto) 2800 [place] # (Auto) 400 Eos # (Auto) 200 Baso # (Auto) 100 Sodium 138 Potassium 4.0 Chloride 101 Carbon Dioxide 28 BUN 13 Creatinine 0.71 Estimated GFR > 60.0 BUN/Creatinine Ratio 18.3 Glucose 120 H Calcium 10.3 H Total Bilirubin 0.7 AST 38 H ALT 25 Alkaline Phosphatase 76 Total Creatine Kinase 83 CK-MB (CK-2) TNP CK-MB (CK-2) Rel Index TNP Troponin I < 0.012 Total Protein 8.7 H Albumin 5.0 Globulin 3.7 Albumin/Globulin Ratio 1.4 Lipase 153 SARS-CoV-2 (PCR) Negative 05/12/21 16:50 WBC RBC Hgb Hct MCV MCH MCHC RDW Plt Count Neut % (Auto) Lymph % (Auto) [place] % (Auto) Eos % (Auto) Baso % (Auto) Neut # (Auto) Lymph # (Auto) [place] # (Auto) Eos # (Auto) Baso # (Auto) Sodium Potassium Chloride Carbon Dioxide BUN Creatinine Estimated GFR BUN/Creatinine Ratio Glucose Calcium Total Bilirubin AST ALT Alkaline Phosphatase Total Creatine Kinase CK-MB (CK-2) CK-MB (CK-2) Rel Index Troponin I < 0.012 Total Protein Albumin Globulin Albumin/Globulin Ratio Lipase SARS-CoV-2 (PCR) Assessment & Plan Assessment & Plan narrative: 1. Acute Chest pain possible ACS in the setting of hyperlipidemia, acute, present on admission -Rule out myocardial ischemia, ACS, CAD, aortic dissection -Monitor for hypertensive emergencies with acute end-organ damage, ventricular tachycardia, unstable SVT, hypertension, angina or AL, heart failure, renal function. Heart score:4, GCS score:15 -Continuous tele monitoring and ordered echo, and stress test for tomorrow -patient placed on heparin drip over night, with PTT monitoring Q6 -Serial troponins 1 Q 6 hours x3, proBNP, TSH, ABG, CBC, electrolytes, UA and chest x-ray, blood pressure in both arms: -sublingual nitro glycerin 0.4 mg, aspirin 325 mg - Goals: reducing blood pressure over 24-48 hours, not more than 25-30% in the 1st 24 hours. O2 to keep O2 sats greater than 92% potassium > 4 and Mag > 2 -lipids ordered 2. Hypothyroidism secondary to pituitary adenoma in place, acute on chronic, pr esent on admission -continue patient's levothyroxine, TSH ordered 3. Fibromyalgia, with contributing chronic low back pain/chronic neck pain due to spinal fusion C1-T1, resulting in peripheral neuropathy, acute on chronic, present on admission -continue patient's Lexapro and trazodone 4. Obesity as evidence by BMI of 31, acute on chronic, present on admission -consideration will be given to dietary counseling. -BS120, A1C ordered, considering DM diagnosis Code Status: DNR-per patient specific verbal instructions Surrogate decision maker: Son Gerardo Rico & daughter Sera CARRIZALES PCR: Negative DVT/VTE prophylaxis: Patient on heparin drip and SCDs applied Scores GCS [place] coma scale eye opening: Spontaneous Evie coma scale verbal response: Orientated [place] coma scale motor response: Obey commands [place] coma scale total score: 15 Wells' Criteria for PE Clinical signs and symptoms of DVT: No PE is #1 Dx or equally likely: No Heart rate > 100: No Immobilization at least 3 days or surg in previous 4 weeks: No History of PE or DVT: No Hemoptysis: No Malignancy w/Treatment within 6 months or palliative: No Wells' PE Score total: 0
[2021-05-12 21:32] LABS: Troponin I < 0.012 ng/mL (0.01-0.034)
[2021-05-12] MEDS: KETOROLAC 30 MG/ML VIAL IV (21:54)
--- NOTE | 2021-05-12 22:07 | PC.NURSE ---
Admit/Evening shift note- Patient arrived to room via stretcher from ER at 2019. Patient alert and oriented and able to make needs known to staff. Patient oriented to bed and bed controls, room, bathroom, lights, phone, menu, and call tilley/TV remote. tele monitor applied as ordered. Patint refused SCD's at this time. Safety measures in place. Patient agrees to call for assistance. Call tilley and phone within reach. will continue to monitor.
[2021-05-12 23:41] LABS: Prothrombin Time 11.3 SECONDS (10.1-12.7)
[2021-05-12] MEDS: TRAZODONE 50 MG TABLET PO (23:52)
[2021-05-13] VITALS (9 sets, daily range): BP systolic 92–122; BP diastolic 52–66; PULSE 44–61; RESP 16–22; TEMP 36.2–37.4; O2SAT 96–99
[2021-05-13 00:19] LABS: PTT Partial Thromboplastin Tim 182 SECONDS (26.4-36.2)
--- NOTE | 2021-05-13 00:26 | PC.NURSE ---
Patient on heparin drip. Scheduled lab draw resulted critical PTT of 182. Protocol stated to stop heparin for 60 minutes. This was done at 0025. Will adjust rate as ordered at 0125.
[2021-05-13 00:40] LABS: Hemoglobin A1C% w Est Avg Glu 5.4 % (4.0-6.0)
[2021-05-13 04:32] LABS: Cholesterol 167 mg/dL (140-199); HDL Cholesterol 63 mg/dL (40-60); LDL Cholesterol Calculated 88 mg/dL (<100); Triglycerides 79 mg/dL (35-150)
[2021-05-13 04:42] LABS: NT-proBNP (BNP-Adult 18+) 117 pg/mL (<125)
[2021-05-13 04:45] LABS: Troponin I < 0.012 ng/mL (0.01-0.034)
[2021-05-13] MEDS: KETOROLAC 30 MG/ML VIAL IV ×5 (05:15→23:18)
[2021-05-13] MEDS: SODIUM CHLORIDE 0.9% FLUSH 10 ML IV (05:16)
[2021-05-13 06:33] LABS: Bacteria Urine None Seen; RBC Urine None Seen (0-5/HPF); WBC Urine None Seen (0-5/HPF)
[2021-05-13 06:43] LABS: INR 1.1 (0.9-1.3); Prothrombin Time 12.6 SECONDS (10.1-12.7)
[2021-05-13 06:53] LABS: Culture Indicated Urine Cult Not Indicated
[2021-05-13 07:00] LABS: PTT Partial Thromboplastin Tim 97 SECONDS (26.4-36.2)
--- NOTE | 2021-05-13 07:25 | P.PN_ITS ---
Subjective Subjective Date Patient Seen: 05/13/21 Time Patient Seen: 10:27 Interval history: She is seen in her room here on 05/13/2021. She is experiencing occasional left-sided chest pain with the most recent event occurring while she was walking her dog yesterday. She denies any injury, lunging dog or pulling on her shoulder. When she rolls onto the left side for her echocardiogram today it exacerbates the pain quite a bit. Her troponin is less than 0.012. Her EKG is reviewed and is sinus bradycardia without abnormal ST or T-wave changes. The cholesterol is 167 with an LDL of 88. Her vitals are normal except for a listed respiratory rate of 44 which is not accurate. Her UA today was normal. She continues on a heparin drip. Exam Vital Signs (past 8 hours): - 05/12/21 23:57 05/13/21 03:00 05/13/21 04:14 Temperature 97.2 F L Pulse Rate 44 L Respiratory Rate 16 Blood Pressure 92/52 L Pulse Oximetry 97 97 97 Oxygen Delivery Method Room Air Oxygen Flow Rate 0 Narrative Exam Narrative: Alert and oriented. No apparent distress. Talkative and very social/engaging. Heart is regular rate and rhythm without murmur Lungs are clear to auscultation bilaterally Extremities have no ankle edema There is no chest wall tenderness. Objective Labs Result Diagrams: 05/12/21 14:45 05/12/21 14:45 Labs: Laboratory Results - last 24 hr 05/12/21 05/12/21 05/12/21 14:45 14:45 14:45 WBC 7.5 RBC 4.88 Hgb 15.0 Hct 44.9 MCV 92.1 MCH 30.8 MCHC 33.4 RDW 13.5 Plt Count 272 Neut % (Auto) 53.2 Lymph % (Auto) 37.7 [place] % (Auto) 5.2 Eos % (Auto) 2.7 Baso % (Auto) 1.2 Neut # (Auto) 4000 Lymph # (Auto) 2800 [place] # (Auto) 400 Eos # (Auto) 200 Baso # (Auto) 100 PT INR APTT Sodium 138 Potassium 4.0 Chloride 101 Carbon Dioxide 28 BUN 13 Creatinine 0.71 Estimated GFR > 60.0 BUN/Creatinine Ratio 18.3 Glucose 120 H Hemoglobin A1c Calcium 10.3 H Magnesium 2.0 Total Bilirubin 0.7 AST 38 H ALT 25 Alkaline Phosphatase 76 Total Creatine Kinase 83 CK-MB (CK-2) TNP CK-MB (CK-2) Rel Index TNP Troponin I < 0.012 NT-Pro-B Natriuret Pep Total Protein 8.7 H Albumin 5.0 Globulin 3.7 Albumin/Globulin Ratio 1.4 Triglycerides Cholesterol LDL Cholesterol, Calc HDL Cholesterol Lipase 153 Urine RBC Urine WBC Urine Bacteria Ur Culture Indicated? SARS-CoV-2 (PCR) 05/12/21 05/12/21 05/12/21 14:45 14:45 16:25 WBC RBC Hgb Hct MCV MCH MCHC RDW Plt Count Neut % (Auto) Lymph % (Auto) [place] % (Auto) Eos % (Auto) Baso % (Auto) Neut # (Auto) Lymph # (Auto) [place] # (Auto) Eos # (Auto) Baso # (Auto) PT 11.3 INR 1.0 APTT Sodium Potassium Chloride Carbon Dioxide BUN Creatinine Estimated GFR BUN/Creatinine Ratio Glucose Hemoglobin A1c 5.4 Calcium Magnesium Total Bilirubin AST ALT Alkaline Phosphatase Total Creatine Kinase CK-MB (CK-2) CK-MB (CK-2) Rel Index Troponin I NT-Pro-B Natriuret Pep Total Protein Albumin Globulin Albumin/Globulin Ratio Triglycerides Cholesterol LDL Cholesterol, Calc HDL Cholesterol Lipase Urine RBC Urine WBC Urine Bacteria Ur Culture Indicated? SARS-CoV-2 (PCR) Negative 05/12/21 05/12/21 05/12/21 16:50 20:50 23:45 WBC RBC Hgb Hct MCV MCH MCHC RDW Plt Count Neut % (Auto) Lymph % (Auto) [place] % (Auto) Eos % (Auto) Baso % (Auto) Neut # (Auto) Lymph # (Auto) [place] # (Auto) Eos # (Auto) Baso # (Auto) PT INR APTT 182 H* Sodium Potassium Chloride Carbon Dioxide BUN Creatinine Estimated GFR BUN/Creatinine Ratio Glucose Hemoglobin A1c Calcium Magnesium Total Bilirubin AST ALT Alkaline Phosphatase Total Creatine Kinase CK-MB (CK-2) CK-MB (CK-2) Rel Index Troponin I < 0.012 < 0.012 NT-Pro-B Natriuret Pep Total Protein Albumin Globulin Albumin/Globulin Ratio Triglycerides Cholesterol LDL Cholesterol, Calc HDL Cholesterol Lipase Urine RBC Urine WBC Urine Bacteria Ur Culture Indicated? SARS-CoV-2 (PCR) 05/13/21 05/13/21 05/13/21 04:15 04:15 06:00 WBC RBC Hgb Hct MCV MCH MCHC RDW Plt Count Neut % (Auto) Lymph % (Auto) [place] % (Auto) Eos % (Auto) Baso % (Auto) Neut # (Auto) Lymph # (Auto) [place] # (Auto) Eos # (Auto) Baso # (Auto) PT 12.6 INR 1.1 APTT Sodium Potassium Chloride Carbon Dioxide BUN Creatinine Estimated GFR BUN/Creatinine Ratio Glucose Hemoglobin A1c Calcium Magnesium Total Bilirubin AST ALT Alkaline Phosphatase Total Creatine Kinase CK-MB (CK-2) CK-MB (CK-2) Rel Index Troponin I < 0.012 NT-Pro-B Natriuret Pep 117 Total Protein Albumin Globulin Albumin/Globulin Ratio Triglycerides 79 Cholesterol 167 LDL Cholesterol, Calc 88 HDL Cholesterol 63 H Lipase Urine RBC Urine WBC Urine Bacteria Ur Culture Indicated? SARS-CoV-2 (PCR) 05/13/21 05/13/21 06:00 06:30 WBC RBC Hgb Hct MCV MCH MCHC RDW Plt Count Neut % (Auto) Lymph % (Auto) [place] % (Auto) Eos % (Auto) Baso % (Auto) Neut # (Auto) Lymph # (Auto) [place] # (Auto) Eos # (Auto) Baso # (Auto) PT INR APTT 97 H* D Sodium Potassium Chloride Carbon Dioxide BUN Creatinine Estimated GFR BUN/Creatinine Ratio Glucose Hemoglobin A1c Calcium Magnesium Total Bilirubin AST ALT Alkaline Phosphatase Total Creatine Kinase CK-MB (CK-2) CK-MB (CK-2) Rel Index Troponin I NT-Pro-B Natriuret Pep Total Protein Albumin Globulin Albumin/Globulin Ratio Triglycerides Cholesterol LDL Cholesterol, Calc HDL Cholesterol Lipase Urine RBC None seen Urine WBC None seen Urine Bacteria None seen Ur Culture Indicated? Cult not indicated SARS-CoV-2 (PCR) [facility] Medical History Cataracts, bilateral (~2018) Cervical spine disease (~2006) Chest pain Chicken pox (~1959) Chronic back pain (~2006) Colon polyps (~2000) Diverticular disease (~1999) Dyslipidemia Fatigue Fibroids Fibromyalgia Hypothyroidism (~2014) Impaired fasting blood sugar Measles Migraines Mumps Peripheral neuropathy Pituitary adenoma (~2001) Psoriasis Rosacea Scoliosis Shoulder pain (~2008) Skin cancer (~1991) Viral syndrome Surgical History Anesthesia History of section History of hysterectomy (~1999) History of lumbar surgery (~2017) History of shoulder surgery (~2009) History of tonsillectomy Status post arthroscopic surgery of right knee Status post cervical spinal fusion Family History Father Cancer History of heart disease Mother COPD (chronic obstructive pulmonary disease) Brother Skin problem Grandfather History of heart disease Grandmother History of heart disease Social History household members: family Smoking Status: Never smoker Assessment & Plan Assessment & Plan narrative: 1. Acute Chest pain possible ACS in the setting of hyperlipidemia, acute, present on admission -Rule out myocardial ischemia, ACS, CAD, aortic dissection -onset with positional change for echocardiogram suggests a musculoskeletal cause. -Continuous tele monitoring, review echo report when available, stress test tomorrow. -continue heparin drip -Serial troponins 1 Q 6 hours x3 -sublingual nitro glycerin 0.4 mg, aspirin 325 mg -total cholesterol 167 with LDL 88, A1c 5.4 2. Hypothyroidism secondary to pituitary adenoma, acute on chronic, present on admission -continue levothyroxine, TSH is still pending 3. Fibromyalgia, with contributing chronic low back pain/chronic neck pain due to spinal fusion C1-T1, resulting in peripheral neuropathy, acute on chronic, present on admission -continue Lexapro and trazodone 4. Obesity as evidence by BMI of 31, acute on chronic, present on admission -consider dietary counseling. -BS 120, A1C 5.4 Code Status: DNR-per patient specific verbal instructions Surrogate decision maker: Son Gerardo Rico & daughter Sera CARRIZALES PCR: Negative DVT/VTE prophylaxis: Patient on heparin drip and SCDs applied Quality VTE Deep Vein Thrombosis/Pulmonary Embolism Present on Admission: No
[2021-05-13] MEDS: ESCITALOPRAM 10 MG TABLET PO (09:32)
[2021-05-13] MEDS: ASPIRIN EC 325 MG TABLET PO (09:32)
--- NOTE | 2021-05-13 10:01 | CM.DANOTE ---
DCP: Case received, EMR reviewed and met with patient. Introduced self and role. Was able to obtain information regarding patient's baseline status prior to hospitalization, as well as her current living situation. DCP assessment completed with information currently available. Patient is a 65 year old female who admitted yesterday evening to the care of the hospitalist team. PCP: STERLING Banks. Payer: confirmed: Medicare/[facility]. Patient came to the hospital via ambulance secondary to having chest pain, as well as shortness of breath. She had recently been to her provider's office, she had seen Ernie Chavis on Friday, and was determined to have a low heart rate. She was at home, and on Friday, was developing some pressure on her chest. Patient is here for a cardiac work up. Met with patient in her room. She is pleasant, alert and oriented, was sitting up in bed. Confirmed with her that she resides here in [place] alone. Her approximately 8 years ago. She moved from [place] and bought a large home here in town. She lives alone upstairs, but son and live downstairs. 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 P: DCP to continue to follow. Patient should be able to go home when she is medically stable. Norah Allan RN/Hair Specialist
[2021-05-13 13:02] LABS: PTT Partial Thromboplastin Tim 55 SECONDS (26.4-36.2)
[2021-05-13 18:27] LABS: PTT Partial Thromboplastin Tim 49 SECONDS (26.4-36.2)
[2021-05-14] VITALS (10 sets, daily range): BP systolic 102–151; BP diastolic 60–82; PULSE 44–54; RESP 16–17; TEMP 36.4–36.9; O2SAT 94–99
[2021-05-14] MEDS: TRAZODONE 50 MG TABLET PO ×2 (00:29→21:49)
--- NOTE | 2021-05-14 02:49 | PC.NURSE ---
patient is alert and oriented. Breath sounds diminished but CTA with RA sat of 98%. HRR but bradycardic w/telemetry reading of SB and rate of 43. Does complain of feeling slightly nauseated and states she has heartburn whenever she eats; declined offer of antiemetic. Denied chest pain but did complain of 3/10 pain across lower ribs posteriorly and right flank pain; is receiving scheduled Toradol and declined any additional pain medication. BT present and abdomen is soft but does complain of bloating and feeling gas-y. Denied dysuria, frequency or urgency with urination. Independent with bed mobility and is getting up to bathroom independently; denied weakness or dizziness but agreed to call for assistance if experiences either when getting up. Refused SCD's so reminded to ankle wave. Fall risk score is low.
[2021-05-14] MEDS: SODIUM CHLORIDE 0.9% FLUSH 10 ML IV ×3 (05:43→20:58)
[2021-05-14] MEDS: KETOROLAC 30 MG/ML VIAL IV ×3 (05:43→18:25)
[2021-05-14] MEDS: LEVOTHYROXINE 50 MCG TABLET PO (05:43)
[2021-05-14 06:34] LABS: Hemoglobin 13.3 g/dL (12.0-16.0); Platelet Count 202 X10^3/uL (150-400)
[2021-05-14 06:46] LABS: INR 1.1 (0.9-1.3); Prothrombin Time 11.7 SECONDS (10.1-12.7)
[2021-05-14 06:54] LABS: PTT Partial Thromboplastin Tim 29 SECONDS (26.4-36.2)
[2021-05-14] MEDS: ENOXAPARIN 40 MG/0.4 ML SYRINGE SUBCUT (08:33)
[2021-05-14] MEDS: ESCITALOPRAM 10 MG TABLET PO (08:49)
[2021-05-14] MEDS: ASPIRIN EC 325 MG TABLET PO (08:49)
--- NOTE | 2021-05-14 09:29 | PC.NURSE ---
Day shift: Pt off AC unti for stress test at approx 0905.
--- NOTE | 2021-05-14 09:33 | PC.NURSE ---
Day shift: Pt back on unit at approx 0930 and back on tele.
--- NOTE | 2021-05-14 10:32 | PC.NURSE ---
Day shift: Pt sititng in chair in room facing window w/ feet up. Relaxed and comfortable. She does complain of mild dyspepsia. Ok to have water only at this time. 2nd part of stress test later today. VS WNL. Denies any chest pain. Independent in room. Steady on feet. Call light in reach. Makes needs known proper.
--- NOTE | 2021-05-14 12:33 | PC.NURSE ---
Day shift: Pt c/o LUQ pain at approx 1225. Dr Mason informed at approx 1236.
--- NOTE | 2021-05-14 12:40 | PC.NURSE ---
Addendum entered by Gino Price R.N. 05/14/21 12:45: Off tele and [employer] informed. Original Note: Day shift: Pt off unit for 2nd stress test at approx 1240.
--- NOTE | 2021-05-14 14:32 | PC.NURSE ---
Day shift: Pt back on AC unit at approx 1400. Still c/o epigastric pain. Gave Maloxx per JAN. Pt eating yogurt w/ peaches. Denies any nausea at tis time.
[2021-05-14] MEDS: MAG HYDROX/ALUM/SIMETH 30 ML UDC PO ×2 (14:41→18:31)
--- NOTE | 2021-05-14 15:49 | CM.DPC ---
DCP Cont: Per MD, pt to have a stress test today around 1230 with likely plan of d/c home pending results. No current identified barriers to discharge. Plan: SW to follow after stress test to confirm safe plan of d/c home when stable, potentially tonight. NIC Foster
[2021-05-14 18:45] LABS: Alanine Aminotransferase 33 IU/L (<35); Albumin 3.6 g/dL (3.5-5.0); Albumin Globulin Ratio 1.3 (1.0-2.8); Alkaline Phosphatase 60 U/L (38-126); Aspartate Aminotransferase 53 IU/L (14-36); BUN Creatinine Ratio 28.1 (6-22); Bilirubin Total 0.4 mg/dL (0.2-1.3); Blood Urea Nitrogen 18 mg/dL (7-17); Calcium 9.5 mg/dL (8.4-10.2); Carbon Dioxide 29 mmol/L (22-32); Chloride 104 mmol/L (98-107); Estimated Glomerular Filt Rate > 60.0 mL/min (>60); Globulin 2.8 g/dL (1.7-4.1); Glucose 111 mg/dL (80-110); HEMOLYSIS < 15 (0-50); Lipase 150 U/L (23-300); Potassium 4.3 mmol/L (3.4-5.1); Sodium 136 mmol/L (137-145); Total Protein 6.4 g/dL (6.3-8.2)
--- NOTE | 2021-05-14 20:56 | DI.NM.S_ITS ---
DATE OF SERVICE: 05/14/2021 PROCEDURE: Exercise perfusion study. INDICATIONS: Chest pain, shortness of breath. Underlying hypertension. RADIOPHARMACEUTICAL: 24.9 millicurie technetium-99m Myoview IV was injected at stress and 13.4 millicurie technetium-99m Myoview IV was injected at rest. CARDIAC STRESS: The patient underwent exercise perfusion study under the supervision of an attending staff. She walked on Lee protocol for 6 minutes and 30 seconds, achieved 88 percent of target heart rate. Baseline blood pressure 140/80. Peak blood pressure 174/80. The patient achieved ALISE -5 percent and 7 METs of workload. During exercise, the patient felt dyspnea and left-sided chest and left-sided upper quadrant heaviness, which on a scale of 1- 10, was 2 in intensity at peak exercise. Baseline EKG revealed sinus rhythm with sinus bradycardia with flattening of ST-segment in inferolateral leads. During stress, there was up to [address] depression in inferolateral leads. No significant convincing arrhythmias seen. RAW DATA: Breast shadow was seen. GATED STUDY: Stress LV ejection fraction 68 percent with a resting end- diastolic volume 93 mL without any obvious wall motion abnormalities. TID ratio 1.19, which is within normal limits. Lung/heart ratio 0.33, which is within normal limits. MYOCARDIAL PERFUSION: Stress supine, resting supine and stress prone images were compared to each other. Stress supine and resting supine images revealed small size, mildly decreased perfusion of anterior wall, anteroapex, which got significantly improved during prone images. No reversible ischemia seen. CONCLUSION: I will call this study likely a normal myocardial perfusion study with significant improvement of anterior wall and anteroapical defect during prone images from supine images. On raw data, breast shadow was seen. No reversible ischemia. Functional aerobic impairment -5 percent. Normal hemodynamic response. The patient felt shortness of breath and mild left-sided chest and left upper quadrant discomfort. As far as perfusion scan is concerned, this is a low-risk myocardial perfusion scan. Clinical correlation is recommended. Taylor Rico - MANDI/eve/jamee doc#: [id number]/job#: [id number] dd: 05/14/2021 17:40:00 dt: 05/14/2021 20:25:00 DICTATING MD/COPIES TO: Dave Steele MD COPIES MNE: AIMEE;
--- NOTE | 2021-05-14 22:25 | PC.NURSE ---
Patient has no complaints of chest pain/tightness/SOB/Dizziness/Headache, but does have some epigastric pain 9/10 at times which is well controlled with scheduled Toradol which brings pain level down to zero. Based on cardiac studies telemetry was dc'd per Ariadna KATZ verbal order. Patient is NPO at midnight and will have an US in the AM. Patient is independent in the room.
[2021-05-15] VITALS (7 sets, daily range): BP systolic 101–131; BP diastolic 56–74; PULSE 49–67; RESP 16–17; TEMP 36.4–37.2; O2SAT 96–98
[2021-05-15] MEDS: LEVOTHYROXINE 50 MCG TABLET PO (06:13)
[2021-05-15 06:30] LABS: INR 1.1 (0.9-1.3)
--- NOTE | 2021-05-15 08:07 | DI.US.S_ITS ---
PROCEDURE: US ABDOMEN COMPLETE INDICATIONS: ABDOMINAL PAIN TECHNIQUE: Real-time scanning was performed of the abdominal and retroperitoneal organs, with image documentation. COMPARISON: None. FINDINGS: Liver: Liver is normal in size and demonstrates mildly increased echotexture compatible with mild fatty infiltration. The portal vein is normal in caliber with hepatopetal flow. Gallbladder: No gallstones. No gallbladder wall thickening, pericholecystic fluid or sonographic Espino's sign. Biliary ducts: Intrahepatic bile ducts are non-dilated. Extrahepatic bile duct caliber measures 5.5 mm. Normal is 6-7 mm or less in diameter, or 10 mm or less post-cholecystectomy. Pancreas: There may be a 2.5 x 2.0 x 1.4 cm lobulated mass in the pancreatic head. Spleen: Spleen is normal in size and homogeneous in echotexture. Kidneys: Kidneys are normal in size and echotexture. Right kidney measures 10.5 cm long; left kidney measures 11.2 cm long. No hydronephrosis or nephrolithiasis. No solid masses. Aorta: Visualized aorta is normal in caliber at less than 3 cm. Iliacs: Proximal common iliac arteries are normal in caliber at less than 2.5 cm. IVC: Intrahepatic inferior vena cava is patent. Miscellaneous: No free abdominal fluid. IMPRESSION: 1. Question a 2.5 x 2.0 x 1.5 cm lobulated mass in the pancreatic head. Pancreatic protocol CT is recommended for follow-up evaluation. 2. Normal gallbladder. No gallstones. 3. Mild hepatic fatty infiltration. Dictated by: Denis Rowland M.D. on 05/15/2021 at 10:37 Approved by: Denis Rowland M.D. on 05/15/2021 at 10:41
[2021-05-15] MEDS: SODIUM CHLORIDE 0.9% FLUSH 10 ML IV (09:46)
[2021-05-15] MEDS: KETOROLAC 30 MG/ML VIAL IV (09:47)
[2021-05-15] MEDS: ESCITALOPRAM 10 MG TABLET PO (09:47)
[2021-05-15] MEDS: ASPIRIN EC 325 MG TABLET PO (09:47)
--- NOTE | 2021-05-15 11:00 | DI.CT.S_ITS ---
PROCEDURE: CT ABDOMEN PELVIS W CON INDICATIONS: evaluate pancreatic head mass r/o cancer TECHNIQUE: After the administration of oral and intravenous contrast, axial sections were acquired from the lung bases to the pubic symphysis. Coronal and sagittal reformats were performed. For radiation dose reduction, the following was used: automated exposure control, adjustment of mA and/or kV according to patient size. COMPARISON:[facility], , US ABDOMEN COMPLETE, 05/15/2021, 8:59. FINDINGS: Image quality: Excellent. Lung bases: Lingula and right middle lobe scars and atelectasis. Heart: No significant findings. ABDOMEN: Liver: Unremarkable. Gallbladder: Unremarkable. Biliary ducts: Unremarkable. Pancreas: Unremarkable. Spleen: Unremarkable. Adrenal Glands: Unremarkable. Kidneys and Ureters: Unremarkable. Stomach and Bowel: There is thickening of gastric antrum as well as jejunum. There are innumerable colonic diverticula involving sigmoid colon. There is thickening of sigmoid colon. Appendix is normal. Peritoneum: No abnormal intraperitoneal fluid. No free air. Ventral Wall: Small fat containing umbilical hernia. Abdominal Nodes: No retroperitoneal or mesenteric adenopathy by size criteria. Vessels: Aorta and inferior vena cava are normal in size. PELVIS: Pelvic Organs: Unremarkable. Bladder: Bladder is not fully distended. Mild bladder wall thickening and mild pericystic stranding. Pelvic Nodes: No enlarged lymph nodes. Miscellaneous: No inguinal hernias are seen. Bones: Unremarkable. IMPRESSION: 1. No pancreatic head mass. The masslike appearance seen on the comparison ultrasound may be caused by markedly thickened gastric antrum. 2. Gastric antral thickening which may be secondary to peptic ulcer disease, inflammatory bowel disease or infection. 3. Mild thickening of jejunal loops, which is nonspecific and may be secondary to inflammatory or infectious process. 4. The extensive colonic diverticulosis. There is sigmoid colon thickening. Mild diverticulosis versus mild segmental colitis. Consider colonoscopy after adequate treatment of acute disease process. 5. Urinary bladder appears mildly thickened with mild stranding. Recommend correlation with urinalysis for urinary tract infection. Dictated by: Denis Rowland M.D. on 05/15/2021 at 14:57 Approved by: Denis Rowland M.D. on 05/15/2021 at 15:05
--- NOTE | 2021-05-15 15:47 | PM.DS.1 ---
History of Present Illness History of Present Illness Date Patient Seen: 05/15/21 Chief complaint: Chest pain Narrative: HPI narrative: 65-year-old woman with intermittent episodes of chest pain, shortness of breath, with diaphoresis, changes in vision, and nausea. The patient reports chest pain described as a weight over her mid upper chest area that radiates down into the left side and under her left shoulder blade, this been increasing in intensity and frequency over the last number of months, seems to be elicited with movement. She has felt a fluttering of her heart, and has experienced numbness and tingling to her fingers and toes during these episodes of chest pain. Yesterday she was seen by her primary care physician and workup was initiated however today she noted that she had significant symptoms after simply walking her dog today, which were dramatically worse for her. Her symptoms once in the ED were sense of being ?off? ,decreased dexterity, feeling off balance mild bradycardia at a rate of 47 along with CP the weighted feeling over her chest radiating down & to her left and then up under the left shoulder blade. Her symptoms were relieved nitro paste. Upon admit to the floor the patient reports 1 small episode of chest pressure again lasting only seconds, but had resolved by the time I had arrived to the bedside. She notes that she does occasionally have stomach pain it has been worse over the last number of days with increasing bloating and abdominal pain postprandially, a weight loss of 30 lb over the past year, patient drinks approximately 4-5, 16 oz glasses of water a day and has increased thirst, urinary frequency and urgency without dysuria. She eats a balanced diet, exercises regularly. 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 Patient has a history of chronic low back pain, chronic neck pain, fibromyalgia (hyper-sensitive nervous system), diverticular disease, migraines, history of pituitary adenoma, hypothyroidism, migraines and has had cervical fusion from C1-T3. 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 Patient denies any anxiety or depression with these episodes. She denies vomiting, abdominal pain, constipation, fevers, cough, chills. Patient's initial exam in ED was fairly unremarkable. Patient did have a mild temperature at 99.1?. 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 Patient had a mildly elevated glucose at 120., troponin and lipase were within normal limits. Chest x-ray was without any evidence of acute pulmonary process, EKG sinus delmar, rate of [address] or T-wave changes. Patient is resting in bed at this time completely asymptomatic and in no distress. Patient admitted for chest pain suspect possible ACS. Discharge Providers Provider Date of admission: 05/13/21 12:19 Discharge Date: 05/15/21 Primary care physician: STERLING Banks Discharge provider: Jenifer Mason MD Summary Hospital Course Discharge Diagnosis: 1. Noncardiac chest pain, stress test revealed no significant ischemia 2. Abdominal discomfort, CT scan of the abdomen reveals no pancreatic head mass, there is marked thickening of the gastric antrum, mild thickening of jejunal loops and extensive colonic diverticulosis 3. Dyslipidemia 4. hypothyroidsim 5. Fibromyalgia Hospital Course: The patient was admitted to the hospital for evaluation of chest pain. She undewent stress testing which was negative for reversible ischemia. The patient developed significant right upper quadrant pain radiating to her back. She underwent abdominal ultrasound which suggested cystic masses at the head of the pancreas. This was followed up with a CT of abdomen/pelvis that revealed no pancreatic head mass, but marked thickening of the gastric antrum with mild thickening of the jejunal loops and extensive diverticulosis. She does report abdominal discomfort and bloating following eating. Her upper abdominal/back pain appears worse with eating as well. 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 The findings of the Abdominal CT were reviewed with her. She had her diet advanced and was deemed approriate for discharge home. Status at Discharge Cognitive/behavioral status at discharge: oriented Functional status at discharge: independent ambulation Overall status at discharge: patient is back to baseline Time Spent with Patient Time spent: Less than 30 minutes Exam Vital Signs (past 8 hours): - 05/15/21 07:54 05/15/21 14:10 Temperature 98.9 F Pulse Rate 55 L 56 L Respiratory Rate 16 16 Blood Pressure 131/74 Pulse Oximetry 97 98 Oxygen Delivery Method Room Air Oxygen Flow Rate 0 Narrative Exam Narrative: pleasant female Lungs: Clear to ausculatation CV: RRR nl Sl S2 Abd: soft/ mildly tender over the midepigastric area Ext: no edema Objective Labs Result Diagrams: 05/14/21 06:20 05/14/21 06:20 Labs: Laboratory Results - last 24 hr 05/14/21 05/15/21 06:20 06:05 PT 12.0 INR 1.1 Sodium 136 L Potassium 4.3 Chloride 104 Carbon Dioxide 29 BUN 18 H Creatinine 0.64 Estimated GFR > 60.0 BUN/Creatinine Ratio 28.1 H Glucose 111 H Calcium 9.5 Total Bilirubin 0.4 AST 53 H ALT 33 Alkaline Phosphatase 60 Total Protein 6.4 Albumin 3.6 Globulin 2.8 Albumin/Globulin Ratio 1.3 Lipase 150 PFSH Medical History Cataracts, bilateral (~2018) Cervical spine disease (~2006) Chest pain Chicken pox (~1959) Chronic back pain (~2006) Colon polyps (~2000) Diverticular disease (~1999) Dyslipidemia Fatigue Fibroids Fibromyalgia Hypothyroidism (~2014) Impaired fasting blood sugar Measles Migraines Mumps Peripheral neuropathy Pituitary adenoma (~2001) Psoriasis Rosacea Scoliosis Shoulder pain (~2008) Skin cancer (~1991) Viral syndrome Surgical History Anesthesia History of section History of hysterectomy (~1999) History of lumbar surgery (~2017) History of shoulder surgery (~2009) History of tonsillectomy Status post arthroscopic surgery of right knee Status post cervical spinal fusion Family History Father Cancer History of heart disease Mother COPD (chronic obstructive pulmonary disease) Brother Skin problem Grandfather History of heart disease Grandmother History of heart disease Social History household members: family Smoking Status: Never smoker Discharge Assessment & Plan Assessment and Plan Assessment: Chest pain-atypical Stress test Negative Abdominal Discomfort, etiology not clear-Abdominal CT findings reveal thickened gastric folds Plan of Treatment: discharge home F/U with Gastroenterology for outpatient EGD Discharge Plan Discharge Plan Patient Disposition: Home Discharge orders & Medications Prescriptions: Continued celecoxib 100 mg capsule 100 mg PO BID Qty: 180 RF: 3 escitalopram oxalate 10 mg tablet 10 mg PO DAILY Qty: 90 RF: 3 levothyroxine 50 mcg capsule 50 mcg PO DAILY Qty: 90 RF: 3 trazodone 50 mg tablet 50 mg PO BEDTIME PRN (Reason: insomnia) Qty: 90 RF: 3 coQ10 (ubiquinol) 100 mg capsule 100 mg PO BID RF: 0 Follow up/Referrals: Deny Montana ARNP [Primary Care Provider] - Diet/Activity/Treatments Diet: Diet as Tolerated Visit Report/Discharge Packet Instructions: Cardiac Stress Test, Myocardial Perfusion Imaging, DI for Cardiac Stress Test Discharge Data Primary Care Provider: Deny Montana Quality VTE Deep Vein Thrombosis/Pulmonary Embolism Present on Admission: No
--- NOTE | 2021-05-16 18:32 | P.PN_ITS ---
Subjective Subjective Date Patient Seen: 05/14/21 Interval history: Patient reports no significant chest pain. However she does describe some right upper quadrant pain that radiates to her back. She complains of nausea with eating. She complains of worsening pain when eating. Exam Vital Signs (past 8 hours): Oxygen Delivery Method Room Air Oxygen Flow Rate 0 Narrative Exam Narrative: Pleasant female in no acute distress Lungs: Clear to auscultation Cardiac exam: Regular rate and rhythm normal S1-S2 Abdomen: Mild tenderness in the right upper quadrant, palpable masses, no rebound tenderness Extremities: No edema Objective Labs Result Diagrams: 05/14/21 06:20 05/14/21 06:20 [facility] Medical History Cataracts, bilateral (~2018) Cervical spine disease (~2006) Chest pain Chicken pox (~1959) Chronic back pain (~2006) Colon polyps (~2000) Diverticular disease (~1999) Dyslipidemia Fatigue Fibroids Fibromyalgia Hypothyroidism (~2014) Impaired fasting blood sugar Measles Migraines Mumps Peripheral neuropathy Pituitary adenoma (~2001) Psoriasis Rosacea Scoliosis Shoulder pain (~2008) Skin cancer (~1991) Viral syndrome Surgical History Anesthesia History of section History of hysterectomy (~1999) History of lumbar surgery (~2017) History of shoulder surgery (~2009) History of tonsillectomy Status post arthroscopic surgery of right knee Status post cervical spinal fusion Family History Father Cancer History of heart disease Mother COPD (chronic obstructive pulmonary disease) Brother Skin problem Grandfather History of heart disease Grandmother History of heart disease Social History household members: family Smoking Status: Never smoker Assessment & Plan Assessment & Plan narrative: Acute Chest pain possible ACS in the setting of hyperlipidemia, acute, present on admission -Rule out myocardial ischemia, ACS, CAD, aortic dissection -Monitor for hypertensive emergencies with acute end-organ damage, ventricular tachycardia, unstable SVT, hypertension, angina or PA, heart failure, renal function. Heart score:4, GCS score:15 -Continuous tele monitoring and ordered echo, and stress test for tomorrow -patient placed on heparin drip over night, with PTT monitoring Q6 -Serial troponins 1 Q 6 hours x3, proBNP, TSH, ABG, CBC, electrolytes, UA and chest x-ray, blood pressure in both arms: -sublingual nitro glycerin 0.4 mg, aspirin 325 mg - Goals: reducing blood pressure over 24-48 hours, not more than 25-30% in the 1st 24 hours. O2 to keep O2 sats greater than 92% potassium > 4 and Mag > 2 -lipids ordered -await stress test, the results pending the results of the stress test 2. Hypothyroidism secondary to pituitary adenoma in place, acute on chronic, present on admission -continue patient's levothyroxine, TSH ordered 3. Fibromyalgia, with contributing chronic low back pain/chronic neck pain due to spinal fusion C1-T1, resulting in peripheral neuropathy, acute on chronic, present on admission -continue patient's Lexapro and trazodone 4. Obesity as evidence by BMI of 31, acute on chronic, present on admission -consideration will be given to dietary counseling. -BS120, A1C ordered, considering DM diagnosis Quality VTE Deep Vein Thrombosis/Pulmonary Embolism Present on Admission: No
== END 2021-05-15 17:17 | disposition home or self-care (01) | DRG 313 ==
LOC: ED 15:56 → AC 19:06
PROVIDERS: Internal Medicine; Nurse Practitioner Family; Admitting Provider Family Medicine; Emergency Provider Emergency Medicine; PCP Registered Nurse Diabetes Educator; Referring Provider Emergency Medicine; Visit Provider Family Medicine
DX: R07.89 Other chest pain (principal); E78.5 Hyperlipidemia, unspecified; K57.30 Diverticulosis of large intestine without perforation or abscess without bleeding; E03.9 Hypothyroidism, unspecified; R10.11 Right upper quadrant pain; M79.7 Fibromyalgia; E66.9 Obesity, unspecified; Z68.31 Body mass index [BMI] 31.0-31.9, adult; Z66 Do not resuscitate; Z20.822 Contact with and (suspected) exposure to COVID-19; R53.83 Other fatigue
CPT/HCPCS: 36415; 71045; 74177; 76700; 78452; 80053; 80061; 81015; 82550; 83036; 83690; 83735; 83880; 84443; 84484; 85014; 85018; 85025; 85049; 85610; 85730; 87635; 93005; 93017; 93306; 94760; 96365; 96366; 96375; 99284; C9803; G0378; A9502; J1644; J1650; J1885; Q9967

== ENCOUNTER → 2021-05-26 10:37 | Outpatient (CLI) | payer MEDICARE, OTHER, SELFPAY ==
[2021-05-12 19:17] VITALS: BMI 31.0
--- NOTE | 2021-05-26 10:39 | DI.RAD.S_ITS ---
PROCEDURE: XR THORACIC SPINE 3V INDICATIONS: neck pain TECHNIQUE: 2 views of the thoracic spine were acquired. COMPARISON: None. FINDINGS: Bones: Mild S-shaped thoracolumbar scoliosis. No fractures or dislocations. No suspicious bony lesions. 12 pairs of ribs are noted, and appear intact where visualized. Soft tissues: No paravertebral stripe thickening. IMPRESSION: Mild S-shaped thoracolumbar scoliosis. No evidence acute bony abnormality of the thoracic spine. If clinical suspicion and/or symptoms persist, further assessment with repeat plain films, or advanced imaging (e.g., CT, MRI, or bone scan) may be helpful for further assessment. Dictated by: Donte Schmid M.D. on 05/26/2021 at 11:02 Approved by: Donte Schmid M.D. on 05/26/2021 at 11:03
--- NOTE | 2021-05-26 10:39 | DI.RAD.S_ITS ---
PROCEDURE: XR CERVICAL SPINE 2V OR 3V INDICATIONS: neck pain TECHNIQUE: 3 view(s) of the cervical spine were acquired. COMPARISON: None. FINDINGS: Bones: No fractures or dislocations to the T1 level. The lateral masses of C1 appear intact on the odontoid view. No suspicious bony lesions. Expected appearance of ACDF spanning C5 through C7 and C7-T1. No evidence of hardware failure or loosening. Interbody fusion material also present. Soft tissues: No prevertebral soft tissue swelling. IMPRESSION: Expected appearance of cervical ACDF. Dictated by: Donte Schmid M.D. on 05/26/2021 at 11:00 Approved by: Donte Schmid M.D. on 05/26/2021 at 11:02
== END ==
PROVIDERS: PCP Registered Nurse Diabetes Educator; Referring Provider Registered Nurse Diabetes Educator; Visit Provider Registered Nurse Diabetes Educator
DX: M54.2 Cervicalgia (principal); G89.29 Other chronic pain; Z98.1 Arthrodesis status
CPT/HCPCS: 72040; 72070

== ENCOUNTER → 2021-06-04 10:49 | Outpatient (CLI) | payer MEDICARE, OTHER, SELFPAY ==
[2021-05-12 19:17] VITALS: BMI 31.0
[2021-06-04 12:29] LABS: Add Manual Diff / Slide Review NO; Basophils Absolute Auto 100 /uL (0-100); Basophils Percent Auto 1.2 % (0-2); Eosinophils Absolute Auto 200 /uL (0-450); Eosinophils Percent Auto 3.2 % (2-4); Hematocrit 39.6 % (36-46); Hemoglobin 13.3 g/dL (12.0-16.0); Lymphocytes Absolute Auto 1800 /uL (1100-4500); Lymphocytes Percent Auto 33.1 % (25-40); Mean Corpuscular HGB Conc 33.7 % (30-36); Mean Corpuscular Hemoglobin 30.5 PG (26-34); Mean Corpuscular Volume 90.8 fL (80-100); Monocytes Absolute Auto 400 /uL (0-900); Monocytes Percent Auto 7.4 % (3-14); Neutrophils Absolute Auto 3100 /uL (1500-7000); Neutrophils Percent Auto 55.1 % (50-75); Platelet Count 260 X10^3/uL (150-400); Red Blood Cell Count 4.36 X10^6/uL (4.0-5.2); Red Cell Distribution Width 12.9 % (11.6-14.8); White Blood Cell Count 5.6 X10^3/uL (4.5-11.0)
[2021-06-04 12:43] LABS: Alanine Aminotransferase 31 IU/L (<35); Albumin 4.3 g/dL (3.5-5.0); Albumin Globulin Ratio 1.5 (1.0-2.8); Alkaline Phosphatase 65 U/L (38-126); Aspartate Aminotransferase 46 IU/L (14-36); BUN Creatinine Ratio 24.5 (6-22); Bilirubin Total 0.5 mg/dL (0.2-1.3); Blood Urea Nitrogen 13 mg/dL (7-17); Calcium 9.8 mg/dL (8.4-10.2); Carbon Dioxide 30 mmol/L (22-32); Chloride 104 mmol/L (98-107); Estimated Glomerular Filt Rate > 60.0 mL/min (>60); Globulin 2.9 g/dL (1.7-4.1); Glucose 102 mg/dL (80-110); HEMOLYSIS < 15 (0-50); Potassium 4.2 mmol/L (3.4-5.1); Sodium 139 mmol/L (137-145); Total Protein 7.2 g/dL (6.3-8.2)
[2021-06-05 07:21] LABS: Interpretation Negative (Negative)
== END ==
PROVIDERS: PCP Registered Nurse Diabetes Educator; Referring Provider Physician Assistant; Visit Provider Physician Assistant
DX: R19.7 Diarrhea, unspecified (principal); I10 Essential (primary) hypertension
CPT/HCPCS: 36415; 80053; 83013; 85025

== ENCOUNTER → 2021-06-05 09:34 | Outpatient (CLI) | payer MEDICARE, OTHER, SELFPAY ==
[2021-05-12 19:17] VITALS: BMI 31.0
[2021-06-05 10:40] LABS: Occult Blood 1 Negative (Negative)
[2021-06-05 11:56] LABS: Clostridium Difficile Tox PCR Negative for C. diff (Negative)
[2021-06-08 15:58] LABS: Calprotectin, Stool 281 ug/g (0-120)
== END ==
PROVIDERS: PCP Registered Nurse Diabetes Educator; Referring Provider Physician Assistant; Visit Provider Physician Assistant
DX: R19.7 Diarrhea, unspecified (principal)
CPT/HCPCS: 82270; 83993; 87045; 87177; 87493; 87899

== ENCOUNTER → 2021-08-27 09:06 | Outpatient (CLI) | payer MEDICARE, OTHER, SELFPAY ==
[2021-05-12 19:17] VITALS: BMI 31.0
--- NOTE | 2021-08-27 | DI.MRI.S_ITS ---
PROCEDURE: MR LUMBAR SPINE WO CON INDICATIONS: Low back pain TECHNIQUE: Noncontrast sagittal T1 spin echo and T2 fast echo, sagittal STIR, axial T1 and T2 fast spin echo through the lumbar spine. In cases with scoliosis, additional coronal T2 fast spin echo may be performed. COMPARISON: None. FINDINGS: Image quality: Excellent. Alignment and Curvature: There is normal bony alignment. Bone Marrow: Marrow is of normal overall signal. No acute vertebral body compression fractures. Spinal Cord: Conus medullaris terminates at the L1 level. Visualized cord demonstrates normal signal and size. Paraspinous Soft Tissues: No paravertebral masses. T12-L1: Normal appearance. L1-L2: Normal appearance. L2-L3: Mild disc space narrowing and circumferential disc bulge combined with hypertrophic facet joints results in mild central and mild bilateral foraminal stenosis. L3-L4: Disc height is maintained. Mild circumferential disc bulge and moderate hypertrophic facet joints combined result in moderate central stenosis with moderate right and moderate left foraminal stenosis. L4-L5: Disc height is maintained. Circumferential disc bulge and hypertrophic facet joints result in mild central stenosis. There is moderate right and mild left foraminal stenosis. L5-S1: Disc height is maintained. Circumferential disc bulge and hypertrophic facet joints present without central or foraminal stenosis. IMPRESSION: 1. Multilevel degenerative disc disease and arthropathy results in varying degrees of central and foraminal stenosis including moderate central and bilateral foraminal stenosis at L3-4 Approved by: Clayton Guan M.D. on 08/27/2021 at 10:08
== END ==
PROVIDERS: PCP Physician Assistant; Referring Provider Physician Assistant; Visit Provider Physician Assistant
DX: M54.50 Low back pain, unspecified; M51.36 Other intervertebral disc degeneration, lumbar region; M51.37 Other intervertebral disc degeneration, lumbosacral region; M47.816 Spondylosis without myelopathy or radiculopathy, lumbar region; M47.817 Spondylosis without myelopathy or radiculopathy, lumbosacral region
CPT/HCPCS: 72148

== ENCOUNTER → 2021-10-15 13:31 | Outpatient (CLI) | payer MEDICARE, OTHER, SELFPAY ==
[2021-05-12 19:17] VITALS: BMI 31.0
--- NOTE | 2021-10-15 13:34 | DI.RAD.S_ITS ---
PROCEDURE: XR HIP W PEL IF DONE SHAHANA MIN 4V INDICATIONS: PAIN TECHNIQUE: AP pelvis with lateral view(s) of the bilateral hip(s). COMPARISON: None. FINDINGS: Bones: No fractures or dislocations. Pelvic ring appears intact. No suspicious bony lesions. Mild joint space narrowing and periarticular osteophyte formation at the bilateral hip joints. Soft tissues: The visualized bowel gas pattern is normal. No suspicious soft tissue calcifications. IMPRESSION: Bilateral hip osteoarthritis. No acute fracture. No osseous lesion. If symptoms and/or clinical suspicion for pathology persist, further assessment with repeat, or advanced imaging (e.g., CT, MRI, or bone scan) may be helpful for further assessment. Dictated by: Franck Mello M.D. on 10/15/2021 at 14:33 Approved by: Franck Mello M.D. on 10/15/2021 at 14:33
== END ==
PROVIDERS: PCP Physician Assistant; Referring Provider Physician Assistant; Visit Provider Physician Assistant
DX: M16.0 Bilateral primary osteoarthritis of hip; M25.559 Pain in unspecified hip
CPT/HCPCS: 73522

== ENCOUNTER → 2021-10-17 08:43 | Outpatient (CLI) | payer MEDICARE, OTHER, SELFPAY ==
[2021-05-12 19:17] VITALS: BMI 31.0
--- NOTE | 2021-10-17 | DI.MG.S_ITS ---
BILATERAL DIGITAL SCREENING MAMMOGRAM 3D/2D WITH CAD: 10/17/2021 CLINICAL: Routine screening. Comparison is made to exams dated: 10/09/2020 mammogram - [facility], 08/02/2019 mammogram, and 11/10/2017 mammogram - outside location. The tissue of both breasts is predominantly fatty. Current study was also evaluated with a Computer Aided Detection (CAD) system. No significant masses, calcifications, or other findings are seen in either breast. There has been no significant interval change. IMPRESSION: NEGATIVE There is no mammographic evidence of malignancy. A 1 year screening mammogram is recommended. This exam was interpreted at Station ID: [id number]. NOTE: For mammograms, a report in lay terms will be sent to the patient. Approximately 15% of breast malignancies will not be visualized mammographically. In the management of a palpable breast mass, a negative mammogram must not discourage biopsy of a clinically suspicious lesion. Electronically Signed By: Enrique Robbins M.D., jr/jazmin:10/17/2021 12:04:14 letter sent: Normal Exam ACR BI-RADS Category 1: Negative [id number]
== END ==
PROVIDERS: PCP Physician Assistant; Referring Provider Physician Assistant; Visit Provider Physician Assistant
DX: Z12.31 Encounter for screening mammogram for malignant neoplasm of breast (principal)
CPT/HCPCS: 77063; 77067

== ENCOUNTER → 2022-05-15 08:09 | Outpatient (CLI) | payer MEDICARE, OTHER, SELFPAY ==
[2021-05-12 19:17] VITALS: BMI 31.0
[2022-05-15 08:45] LABS: Add Manual Diff / Slide Review NO; Basophils Absolute Auto 0 /uL (0-100); Basophils Percent Auto 0.9 % (0-2); Eosinophils Absolute Auto 200 /uL (0-450); Eosinophils Percent Auto 2.9 % (2-4); Hemoglobin 13.1 g/dL (12.0-16.0); Lymphocytes Absolute Auto 2400 /uL (1100-4500); Mean Corpuscular HGB Conc 33.6 % (30-36); Mean Corpuscular Hemoglobin 30.3 PG (26-34); Mean Corpuscular Volume 90.1 fL (80-100); Monocytes Absolute Auto 400 /uL (0-900); Monocytes Percent Auto 8.3 % (3-14); Neutrophils Absolute Auto 2300 /uL (1500-7000); Neutrophils Percent Auto 42.9 % (50-75); Platelet Count 239 X10^3/uL (150-400); Red Blood Cell Count 4.33 X10^6/uL (4.0-5.2); Red Cell Distribution Width 12.9 % (11.6-14.8); White Blood Cell Count 5.3 X10^3/uL (4.5-11.0)
[2022-05-15 09:04] LABS: Alanine Aminotransferase 54 IU/L (<35); Albumin 4.3 g/dL (3.5-5.0); Albumin Globulin Ratio 1.6 (1.0-2.8); Alkaline Phosphatase 63 U/L (38-126); Aspartate Aminotransferase 48 IU/L (14-36); BUN Creatinine Ratio 28.2 (6-22); Bilirubin Total 0.5 mg/dL (0.2-1.3); Blood Urea Nitrogen 20 mg/dL (7-17); Calcium 9.4 mg/dL (8.4-10.2); Carbon Dioxide 34 mmol/L (22-32); Chloride 102 mmol/L (98-107); Cholesterol 221 mg/dL (140-199); Estimated Glomerular Filt Rate > 60 mL/min (>60); Globulin 2.7 g/dL (1.7-4.1); Glucose 97 mg/dL (80-110); HDL Cholesterol 93 mg/dL (40-60); HEMOLYSIS < 15 (0-50); LDL Cholesterol Calculated 117 mg/dL (<100); Lipase 41 U/L (23-300); Potassium 4.2 mmol/L (3.4-5.1); Sodium 142 mmol/L (137-145); Triglycerides 55 mg/dL (35-150)
[2022-05-15 09:44] LABS: TSH w/ Reflex to FT4 2.66 uIU/mL (0.47-4.68)
[2022-05-16 06:43] LABS: HBsAg Screen Negative (Negative); Hepatitis A Antibody IgM Negative (Negative); Hepatitis B Core Antibody IgM Negative (Negative); Hepatitis C Antibody <0.1 s/co ratio (0.0-0.9)
== END ==
PROVIDERS: PCP Physician Assistant; Referring Provider Physician Assistant; Visit Provider Physician Assistant
DX: E78.5 Hyperlipidemia, unspecified (principal); R94.5 Abnormal results of liver function studies; E03.9 Hypothyroidism, unspecified
CPT/HCPCS: 36415; 80053; 80061; 80074; 83690; 84443; 85025

== ENCOUNTER → 2022-05-18 14:38 | Outpatient (CLI) | payer MEDICARE, OTHER, SELFPAY ==
[2021-05-12 19:17] VITALS: BMI 31.0
--- NOTE | 2022-05-18 | DI.US.S_ITS ---
PROCEDURE: US ABDOMEN LIMITED INDICATIONS: Abnormal results of liver function studies TECHNIQUE: Real-time scanning was performed of the quadrant, with image documentation. COMPARISON: [facility], US, US ABDOMEN COMPLETE, 05/15/2021, 8:59. FINDINGS: Liver: Liver is normal in size and homogeneous in echotexture. Gallbladder: Sign remarkable in appearance without wall thickening, gallstones, or pericholecystic fluid. Negative sonographic Espino sign. Biliary ducts: Intrahepatic bile ducts are non-dilated. Extrahepatic bile duct caliber measures 7.1 mm. Normal is 6-7 mm or less in diameter, or 10 mm or less post-cholecystectomy. Aorta: Visualized aorta is normal in caliber at less than 3 cm. IVC: Intrahepatic inferior vena cava is patent. Miscellaneous: No free abdominal fluid. IMPRESSION: No acute abnormality identified. Common bile duct along the upper limits of normal for patient's age. Dictated by: Marques Herbert D.O. on 05/18/2022 at 16:13 Approved by: Marques Herbert D.O. on 05/18/2022 at 16:17
== END ==
PROVIDERS: PCP Physician Assistant; Referring Provider Physician Assistant; Visit Provider Physician Assistant
DX: R94.5 Abnormal results of liver function studies (principal)
CPT/HCPCS: 76705

== ENCOUNTER → 2022-08-15 11:39 | Outpatient (CLI) | payer MEDICARE, OTHER, SELFPAY ==
[2021-05-12 19:17] VITALS: BMI 31.0
== END ==
PROVIDERS: PCP Family Medicine; Referring Provider Family Medicine; Visit Provider Family Medicine
DX: Z78.0 Asymptomatic menopausal state (principal)
CPT/HCPCS: 77080; 87086

== ENCOUNTER → 2022-11-06 09:01 | Outpatient (ROUT) | payer MEDICARE, OTHER, SELFPAY ==
[2021-05-12 19:17] VITALS: BMI 31.0
== END ==
PROVIDERS: PCP Family Medicine; Visit Provider Family Medicine
DX: N39.0 Urinary tract infection, site not specified (principal)
CPT/HCPCS: 87086

== ENCOUNTER → 2023-01-01 12:45 | Outpatient (CLI) | payer MEDICARE, OTHER, SELFPAY ==
[2021-05-12 19:17] VITALS: BMI 31.0
--- NOTE | 2023-01-01 12:48 | DI.MRI.S_ITS ---
PROCEDURE: MR LUMBAR SPINE WO CON INDICATIONS: Radiculopathy, lumbar region TECHNIQUE: Noncontrast sagittal T1 spin echo and T2 fast echo, sagittal STIR, and T2 fast spin echo through the lumbar spine. In cases with scoliosis, additional coronal T2 fast spin echo may be performed. COMPARISON: None. FINDINGS: Approximately 3 mm anterolisthesis of L4 on L5 with no associated pars defect. Otherwise normal alignment. Vertebral body heights maintained. No suspicious focal marrow signal abnormality. Discogenic marrow edema adjacent to the L4-L5 facets extending into the pedicles, more pronounced on the left. Associated facet subchondral cystic change, moderate facet effusions, and periarticular soft tissue edema. Similar but less pronounced changes are seen associated with the bilateral L5-S1 and L3-L4 facets without associated marrow. Normal position and appearance of the conus. Prevertebral and paraspinous soft tissues normal. T12-L1: No spinal canal or neural foraminal stenosis. L1-L2: No spinal canal or neural foraminal stenosis. L2-L3: Moderate spinal canal stenosis due to diffuse disc bulge and superimposed protrusion with contribution from facet hypertrophy and buckling of the ligamentum flavum. Moderate bilateral neural foraminal narrowing due to foraminal components of the disc bulge and facet hypertrophy. L3-L4: Moderate spinal canal stenosis due to diffuse disc bulge and a superimposed broad-based posterior disc protrusion with contribution from bulky facet hypertrophy and buckling of the ligamentum flavum. These factors combine to produce moderate bilateral neural foraminal narrowing. L4-L5: Moderate spinal canal stenosis due to pseudo bulge caused by anterolisthesis of L4 on L5, with contribution from true disc bulge and facet hypertrophy as well. Mild displacement of the descending L5 nerve roots in both subarticular zones. Moderate foraminal narrowing due to these changes. L5-S1: No spinal canal or neural foraminal stenosis. IMPRESSION: Multilevel multifactorial degenerative changes, overall moderate, worst at from L2-L3 through L4-L5. Facet hypertrophy with associated marrow edema at L4-L5, left greater than right, also with associated subchondral cystic change and facet effusions and periarticular soft tissue edema. This is a potential source of nonradicular axial back pain. Moderate multilevel neural foraminal narrowing. Moderate spinal canal stenosis at L2-L3 and L3-L4 and L4-L5. Dictated by: Enrique Robbins M.D. on 01/03/2023 at 9:25 Approved by: Enrique Robbins M.D. on 01/03/2023 at 9:29
== END ==
PROVIDERS: PCP Family Medicine; Referring Provider Orthopaedic Surgery; Visit Provider Orthopaedic Surgery
DX: M53.3 Sacrococcygeal disorders, not elsewhere classified (principal); M51.16 Intervertebral disc disorders with radiculopathy, lumbar region; M47.26 Other spondylosis with radiculopathy, lumbar region; M48.061 Spinal stenosis, lumbar region without neurogenic claudication; G89.29 Other chronic pain
CPT/HCPCS: 72148